=== PATIENT | female | born 1970 | race Caucasian/White ===

== ENCOUNTER 2019-08-23 07:47 | Outpatient (CLI) | payer OTHER, SELFPAY ==
--- NOTE | 2019-08-23 | EST_ITS ---
Patient Info Name: Zoë Penn Age: 49 years : 1970 Gender: Female Ht: 61 in Wt: 211 lbs BSA: 2.08 m2 Exam Date: 08/23/2019 9:54 AM Exam Location: [facility] Stress Patient Status: Outpatient Admit Date: 08/23/2019 Staff Ordering Physician: Richard, Belle Morgan MD Attending Provider: Richard, Belle Morgan MD Exercise Technologist: Taina Fang RDCS Nurse: Julia Barrera, ANP, ACNP-BC Exam Type: CA stress test treadmill w NM Study Info Indications R07.89 - Other chest pain A pharmacological stress test was performed. Summary 1. Please correlate with nuclear medicine images, reported separately. 2. Good exercise capacity for age. 3. No exercise-induced chest pain. 4. Hypotensive blood pressure response to exercise which is abnormal. 5. Upsloping inferolateral ST segment depressions are noted with stress, but these do not meet strict criteria for ischemia. Protocol: [facility] Stress ECG Details Stage: REST Duration (min): 1 min : 36 sec Speed (mph): 0.0 Grade (%): 0 HR (bpm): 77 SBP (mmHg): 153 DBP (mmHg): 89 METS: --- Stage: REST Duration (min): 18 min : 8 sec Speed (mph): 0.0 Grade (%): 0 HR (bpm): 91 SBP (mmHg): 153 DBP (mmHg): 89 METS: --- Stage: STAGE 1 Duration (min): 1 min : 0 sec Speed (mph): 1.7 Grade (%): 10 HR (bpm): 105 SBP (mmHg): 153 DBP (mmHg): 89 METS: --- Stage: STAGE 1 Duration (min): 2 min : 0 sec Speed (mph): 1.7 Grade (%): 10 HR (bpm): 114 SBP (mmHg): 153 DBP (mmHg): 89 METS: --- Stage: STAGE 1 Duration (min): 3 min : 0 sec Speed (mph): 1.7 Grade (%): 10 HR (bpm): 121 SBP (mmHg): 169 DBP (mmHg): 54 METS: --- Stage: STAGE 2 Duration (min): 1 min : 0 sec Speed (mph): 2.5 Grade (%): 12 HR (bpm): 125 SBP (mmHg): 169 DBP (mmHg): 54 METS: --- Stage: STAGE 2 Duration (min): 2 min : 0 sec Speed (mph): 2.5 Grade (%): 12 HR (bpm): 131 SBP (mmHg): 145 DBP (mmHg): 75 METS: --- Stage: STAGE 2 Duration (min): 3 min : 0 sec Speed (mph): 2.5 Grade (%): 12 HR (bpm): 136 SBP (mmHg): 145 DBP (mmHg): 75 METS: --- Stage: STAGE 3 Duration (min): 1 min : 0 sec Speed (mph): 3.4 Grade (%): 14 HR (bpm): 146 SBP (mmHg): 152 DBP (mmHg): 78 METS: --- Stage: STAGE 3 Duration (min): 2 min : 0 sec Speed (mph): 3.4 Grade (%): 14 HR (bpm): 157 SBP (mmHg): 152 DBP (mmHg): 78 METS: --- Stage: STAGE 3 Duration (min): 2 min : 20 sec Speed (mph): 3.4 Grade (%): 14 HR (bpm): 160 SBP (mmHg): 152 DBP (mmHg): 78 METS: --- Stage: RECOVERY Duration (min): 0 min : 39 sec Speed (mph): 1.5 Grade (%): 0 HR (bpm): 153 SBP (mmHg): 157 DBP (mmHg): 100 METS: --- Stage: RECOVERY Duration (min): 1 min : 39 sec Spe
--- NOTE | ~2019-08-23 | NM_ITS ---
EXAMINATION: NM stress w perf spect multi DATE: 08/23/2019 14:47 INDICATION: Chest pain. TECHNIQUE: Rest images were obtained following intravenous administration of 10.2 mCi Tc99m tetrofosm in (Backspaces). The patient performed an exercise activity. At peak exercise, 32.4 mCi Tc99m tetrofosmi n (Myoview) was administered intravenously, and stress images were obtained. Data was reconstructed i nto short axis and horizontal and vertical long axis SPECT images. Gated SPECT images were also obtai victoria. COMPARISON: CT abdomen and pelvis 07/28/2019 FINDINGS: There is a small, mild, fixed perfusion defect involving mid to basal anterior wall, consis tent with infarct. No reversible component to suggest ischemia. There is no segmental wall motion ab normality. Left ventricular ejection fraction measures 69%. IMPRESSION: 1. 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 2. Normal left ventricular ejection fraction measuring 69%. Reviewed, dictated and finalized at location A. GROOVY DEVELOPER IMPRESSION: 1. Small area of mild infarct involving mid to basal anterior wall of left vent ricle. 2. Normal left ventricular ejection fraction measuring 69%.
== END 2019-08-23 07:48 | disposition home or self-care (01) ==
PROVIDERS: PCP Family Medicine; Visit Provider Family Medicine
DX: I95.89 Other hypotension (principal); R94.39 Abnormal result of other cardiovascular function study
CPT/HCPCS: 78452; 93017; A9502

== ENCOUNTER → 2019-10-22 08:29 | Outpatient (CLI) | payer OTHER, SELFPAY ==
--- NOTE | ~2019-10-22 | US_ITS ---
EXAMINATION: US transvaginal EXAM DATE: 10/22/2019 09:25 INDICATION: Bilateral ovarian cysts on previous imaging. TECHNIQUE: Pelvic transvaginal sonogram was performed. There are multiple grayscale and Doppler imag es available for interpretation. Correlation is made to CT 07/28/2019. FINDINGS: Uterus measures 7.7 x 3.8 x 4.4 cm, and is morphologically normal. Endometrial stripe tiffanie sures 8 mm, within normal limits. Again there are multiple sizable nabothian cysts. There is no free pelvic fluid. Right adnexa: The ovary measures 2.6 x 3.3 x 3.1 cm and is morphologically normal. Ovarian vascular f low confirmed. Left adnexa: The ovary measures 2.0 x 1.4 x 1.7 cm and is morphologically normal, with resolution of the left ovarian 5 cm lesion seen on recent CT scan. Ovarian vascular flow confirmed. IMPRESSION: 1. No clinically significant findings. Reviewed, dictated and finalized at location B.
== END ==
PROVIDERS: PCP Family Medicine; Visit Provider Obstetrics & Gynecology Gynecology
DX: N83.209 Unspecified ovarian cyst, unspecified side (principal)
CPT/HCPCS: 76830

== ENCOUNTER → 2020-04-04 09:40 | Outpatient (CLI) | payer OTHER, SELFPAY ==
--- NOTE | ~2020-04-04 | MM_ITS ---
EXAMINATION: MM screening jessie BI w farshad HISTORY: Screening mammogram TECHNIQUE: Craniocaudal and mediolateral oblique 3-D tomosynthesis images were obtained and synthetic 2-D images were generated. CAD analysis was submitted and interpreted. COMPARISON: 03/23/2019, 03/03/2018, 02/25/2017 bilateral digital screening mammogram examinations BREAST PARENCHYMAL COMPOSITION: The breasts are heterogeneously dense, which may obscure small masses . FINDINGS: Stable mild fibroglandular asymmetry. There is no evidence of suspicious mass, calcificatio n, or architectural distortion to suggest malignancy in either breast. There has been no suspicious i nterval change. IMPRESSION: 1. No mammographic evidence of malignancy. 2. Recommend routine screening mammography in one year. BI-RADS Category 2: Benign finding(s). Reviewed, dictated and finalized at location A.
== END ==
PROVIDERS: PCP Family Medicine; Visit Provider Nurse Practitioner
DX: Z12.31 Encounter for screening mammogram for malignant neoplasm of breast (principal)
CPT/HCPCS: 77063; 77067

== ENCOUNTER → 2021-03-24 08:23 | Outpatient (CLI) | payer OTHER, SELFPAY ==
--- NOTE | ~2021-03-24 | US_ITS ---
EXAMINATION: US transvaginal DATE: 03/24/2021 09:02 INDICATION: Bilateral ovarian cysts TECHNIQUE: Multiple endovaginal sonographic images of the pelvis were obtained. COMPARISON: 10/22/2019 FINDINGS: The uterus measures 7.2 x 4.1 x 4.3 cm. A 1.6 x 1.6 x 2.0 cm hypoechoic mass of the posteri or uterus to the right of midline has the appearance of an intramural fibroid. Nabothian cysts are ag ain noted in the cervix. The endometrial complex measures 4 mm. The right ovary measures 1.7 x 2.4 x 2.2 cm. The left ovary measures 2.4 x 3.1 x 1.9 cm. There is normal vascular flow in the ovaries. The re is no free fluid in the pelvis. IMPRESSION: 1. No adnexal cysts identified. Reviewed, dictated and finalized at location B.
== END ==
PROVIDERS: PCP Family Medicine; Visit Provider Obstetrics & Gynecology Gynecology
DX: N83.202 Unspecified ovarian cyst, left side (principal); N83.201 Unspecified ovarian cyst, right side
CPT/HCPCS: 76830

== ENCOUNTER → 2021-04-10 07:27 | Outpatient (CLI) | payer OTHER, SELFPAY ==
--- NOTE | ~2021-04-10 | MM_ITS ---
EXAMINATION: MM screening jessie BI w farshad HISTORY: Screening mammogram TECHNIQUE: Craniocaudal and mediolateral oblique 3-D tomosynthesis images were obtained and synthetic 2-D images were generated. CAD analysis was submitted and interpreted. COMPARISON: 04/04/2020, 03/23/2019, 03/03/2018 bilateral digital screening mammogram examinations BREAST PARENCHYMAL COMPOSITION: There are scattered areas of fibroglandular density. FINDINGS: There is no evidence of suspicious mass, calcification, or architectural distortion to sugg est malignancy in either breast. There has been no suspicious interval change. IMPRESSION: 1. No mammographic evidence of malignancy. 2. Recommend routine screening mammography in one year. BI-RADS Category 1: Negative Reviewed, dictated and finalized at location A.
== END ==
PROVIDERS: PCP Family Medicine; Visit Provider Obstetrics & Gynecology Gynecology
DX: Z12.31 Encounter for screening mammogram for malignant neoplasm of breast (principal)
CPT/HCPCS: 77063; 77067

== ENCOUNTER → 2022-04-16 07:17 | Outpatient (CLI) | payer OTHER, SELFPAY ==
--- NOTE | ~2022-04-16 | MM_ITS ---
EXAMINATION: MM screening jessie BI w farshad HISTORY: Screening mammogram TECHNIQUE: Craniocaudal and mediolateral oblique 3-D tomosynthesis images were obtained and synthetic 2-D images were generated. CAD analysis was submitted and interpreted. COMPARISON: 04/06/2021, 04/04/2020, 03/23/2019, 03/03/2018 bilateral screening mammogram examinations BREAST PARENCHYMAL COMPOSITION: There are scattered areas of fibroglandular density. FINDINGS: Stable mild fibroglandular asymmetry since 03/03/2018. There is no evidence of suspicious ma ss, calcification, or architectural distortion to suggest malignancy in either breast. There has been no suspicious interval change. IMPRESSION: 1. No mammographic evidence of malignancy. 2. Recommend routine screening mammography in one year. BI-RADS Category 1: Negative Reviewed, dictated and finalized at location A.
== END ==
PROVIDERS: PCP Family Medicine; Visit Provider Obstetrics & Gynecology Gynecology
DX: Z12.31 Encounter for screening mammogram for malignant neoplasm of breast (principal)
CPT/HCPCS: 77063; 77067

== ENCOUNTER → 2023-04-22 07:33 | Outpatient (CLI) | payer OTHER, SELFPAY ==
--- NOTE | ~2023-04-22 | MM_ITS ---
EXAMINATION: MM screening jessie BI w farshad HISTORY: Screening mammogram TECHNIQUE: Craniocaudal and mediolateral oblique 3-D tomosynthesis images were obtained and synthetic 2-D images were generated. CAD analysis was submitted and interpreted. COMPARISON: 04/16/2022, 04/06/2021, 04/04/2020 bilateral screening mammogram examinations BREAST PARENCHYMAL COMPOSITION: The breasts are heterogeneously dense, which may obscure small masses . FINDINGS: There is no evidence of suspicious mass, calcification, or architectural distortion to sugg est malignancy in either breast. There has been no suspicious interval change. IMPRESSION: 1. No mammographic evidence of malignancy. 2. Recommend routine screening mammography in one year. BI-RADS Category 1: Negative Reviewed, dictated and finalized at location B.
== END ==
PROVIDERS: PCP Family Medicine; Visit Provider Nurse Practitioner
DX: Z12.31 Encounter for screening mammogram for malignant neoplasm of breast (principal)
CPT/HCPCS: 77063; 77067

== ENCOUNTER 2024-04-27 07:14 | Outpatient (CLI) | payer OTHER, SELFPAY ==
--- NOTE | ~2024-04-27 | MM_ITS ---
EXAMINATION: MM screening jessie BI w farshad HISTORY: Screening TECHNIQUE: Craniocaudal and mediolateral oblique 3-D tomosynthesis images were obtained and synthetic 2-D images were generated. CAD analysis was submitted and interpreted. COMPARISON: Comparison to multiple prior studies sequentially, with oldest reviewed study dated 03/03. BREAST PARENCHYMAL COMPOSITION: Not dense: There are scattered areas of fibroglandular density. FINDINGS: There is no evidence of suspicious mass, calcification, or architectural distortion to sugg est malignancy in either breast. There has been no suspicious interval change. IMPRESSION: 1. No mammographic evidence of malignancy. 2. Recommend routine screening mammography in one year. BI-RADS Category 1: Negative Reviewed, dictated and finalized at location B.
== END 2024-04-27 07:15 | disposition home or self-care (01) ==
LOC: MICIMG 07:16
PROVIDERS: PCP Physician Assistant; Visit Provider Obstetrics & Gynecology Gynecology
DX: Z12.31 Encounter for screening mammogram for malignant neoplasm of breast (principal)
CPT/HCPCS: 77063; 77067

== ENCOUNTER 2024-06-28 07:07 | Outpatient (CLI) | payer OTHER, SELFPAY ==
--- NOTE | ~2024-06-28 | MR_ITS ---
MRI of the thoracic spine Clinical History: Muscle spasm Technique: Axial T2-weighted and gradient images, and sagittal T1-weighted, T2-weighted, and STIR raya ges were acquired. Findings: There is no fracture or subluxation of the thoracic spine. Vertebral bodies maintain normal height and alignment. No bone marrow signal abnormality seen. There is moderate degenerative disc na rrowing throughout the mid thoracic spine, especially from T4 through T9. There are mild disc bulges from T4-T5 through T9-T10, but no uday canal stenosis or cord compression evident. There are moderate facet joint degenerative changes of the lower thoracic spine. Neural for lily are preserved throughout. No abnormal signal seen in the spinal cord. Paravertebral soft tissues are unremarkable. Impression: Moderate degenerative disc changes throughout the mid thoracic spine, as above. No canal stenosis or cord compression. No neural foraminal narrowing. No fracture or subluxation. Reviewed, dictated and finalized at [facility]. [employer]CE LAWYER Impression: Moderate degenerative disc changes throughout the mid thoracic spine, as above. No canal stenosis or cord compression. No neural foraminal narrowing. No fracture or subluxation.
== END 2024-06-28 07:08 | disposition home or self-care (01) ==
LOC: MICIMG 07:07
PROVIDERS: PCP Physician Assistant; Visit Provider Physician Assistant
DX: M51.34 Other intervertebral disc degeneration, thoracic region (principal); M62.830 Muscle spasm of back
CPT/HCPCS: 72146

== ENCOUNTER 2025-05-13 07:27 | Outpatient (CLI) | payer OTHER, SELFPAY ==
--- NOTE | ~2025-05-13 | MM_ITS ---
EXAMINATION: MM screening jessie BI w farshad HISTORY: Screening TECHNIQUE: Craniocaudal and mediolateral oblique 3-D tomosynthesis images were obtained and synthetic 2-D images were generated. CAD analysis was submitted and interpreted. COMPARISON: Comparison to multiple prior studies sequentially, with oldest reviewed study dated 03/23/2019. BREAST PARENCHYMAL COMPOSITION: There are scattered areas of fibroglandular density. FINDINGS: There is no evidence of suspicious mass, calcification, or architectural distortion to suggest malignancy in either breast. There has been no suspicious interval change. IMPRESSION: 1. No mammographic evidence of malignancy. 2. Recommend routine screening mammography in one year. BI-RADS Category 1: Negative Reviewed, dictated and finalized at location B.
== END 2025-05-13 07:28 | disposition home or self-care (01) ==
LOC: MICIMG 07:28
PROVIDERS: PCP Nurse Practitioner; Visit Provider Nurse Practitioner
DX: Z12.31 Encounter for screening mammogram for malignant neoplasm of breast (principal)
CPT/HCPCS: 77063; 77067

== ENCOUNTER 2025-05-27 09:22 | Outpatient (CLI) | payer OTHER, SELFPAY ==
--- NOTE | ~2025-05-27 | US_ITS ---
EXAMINATION: US pelvic complete, 05/27/2025 9:23 TRIMMING DEPARTMENT BLOCKER HISTORY: Post menopausal bleeding Comparison: None Technique: Begum-scale and color Doppler images were obtained. Findings: Uterus: Uterus anteverted 7 x 3.6 x 4.1 cm. Posterior uterine body fibroid 1.8 x 2.4 cm. . Endometrium 4 mm. Right Ovary:Right ovary not identified due to bowel gas. Left Ovary: Left ovary 2.8 x 1.6 x 1.8 cm, no adnexal mass, normal flow. Free Fluid: None Impression: Uterine fibroid detailed above Reviewed, dictated and finalized at location P. MING DEPARTMENT BLOCKER Impression: Uterine fibroid detailed above
== END 2025-05-27 09:23 | disposition home or self-care (01) ==
LOC: MICIMG 09:22
PROVIDERS: PCP Nurse Practitioner; Visit Provider Nurse Practitioner
DX: D25.9 Leiomyoma of uterus, unspecified (principal); N95.0 Postmenopausal bleeding
CPT/HCPCS: 76856

== ENCOUNTER 2025-06-26 16:52 | Outpatient (CLI) | payer OTHER, SELFPAY ==
[2025-06-26 17:49] LABS: Anion Gap 8 mmol/L (4-12); Blood Urea Nitrogen 14 mg/dL (7-17); Calcium 9.8 mg/dL (8.4-10.2); Carbon Dioxide 27 mmol/L (22-30); Chloride 101 mmol/L (98-107); Estimated Glomerular Filt Rate 59; Glucose 96 mg/dL (65-110); Potassium 3.7 mmol/L (3.4-5.0); Sodium 136 mmol/L (137-145)
--- OUTSIDE RECORDS SUMMARY | 2025-06-26 21:04 | XMS_ITS | Clinical Summary ---
Author Organization [facility] Address [address] [place] [address] Care Team Providers Care Cath Laboratory Technician Name Role Phone Peyman BowieElizabetCherry henning Primary Care Provider [phone] Source Comments [facility],non-owned Affiliates and Associated Physician Practices is amultiple site organization consisting of ambulatory clinics and hospital sitesin [place], [place], [place] and [place]. This disclosure is being madepursuant to the Care Everywhere program and may not contain all information available regarding this patient. Last updated 18.[facility] Allergies No known active allergies Medications * Be aware that medications may not be up to date on this document. Alwaysverify current medications with the patient. lisinopril-hydro CHLOROthiazide (PRINZIDE; ZESTORETIC) 20-12.5 MG tablet Take 1 tablet by mouth once daily Active cyanocobalamin (VITAMIN B-12) 1000 MCG tablet Take 1,000 mcg by mouth once daily 06/20/2019 Active Magnesium Oxide 400 (240 Mg) MG Take 1 tablet by mouth once daily 06/20/2019 Active Naproxen Sodium 220 MG Take 220 mg by mouth once daily as needed Active raNITIdine (ZANTAC) 150 MG tablet Take 150 mg by mouth once daily as needed 5 10/11/2018 Active Active Problems Problem Noted Date Diagnosed Date Diverticulitis 07/03/2019 NAFLD (nonalcoholic fatty liver disease) 019 Overview (08/28/2019): 08/28/19 Fibroscan CAP 343, LSM 4.8 kPa Essential hypertension 07/03/2019 Social History Tobacco Use Types Packs/Day Years Used Date Smoking Tobacco: Never Smokeless Tobacco: Never Alcohol Use Standard Drinks/Week Comments Never 0 (1 standard drink = 0.6 oz pur e alcohol) AUDIT-C Answer Date Recorded Frequency of Alcohol Consumption Never 07/03/2019 Average Number of Drinks Not on file 019 Frequency of Binge Drinking Not on file 06/17 Comments Unknown Sex and Gender Information Value Date Recorded Sex Assigned at Not on file 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 Gender Identity Not on file Sexual Orientation Not on file Last Filed Vital Signs Vital Sign Reading Time Taken Comments Blood Pressure 136/90 08/28/2019 2:04 PM [facility] Pulse 102 08/28/2019 2:04 PM [facility] Temperature 36.7 C (98.1 F) 08/28/2019 2:04 PM [facility] Respiratory Rate 20 08/28/2019 2:04 PM [facility] Oxygen Saturation 97% 08/28/2019 2:04 PM [facility] Inhaled Oxygen Concentration - - Weight 96.3 kg (212 lb 6.4 oz) 08/28/2019 2:04 P M [facility] Height 154.9 cm (5' 1) 08/28/2019 2:04 PM [facility] Body Mass Index 40.13 08/28/2019 2:04 PM [facility] Plan of Treatment Health Maintenance Due Date Last Done Comments COLOGUARD (AGES 45-75) - COL ON CA SCREENING 1970 COLON MONITORING 1970 COLONOSCOPY - COLON CA SCREENING 1971 CT COLONOGRAPHY - COLON CA SCREENING 1970 Colorectal Cancer Screening 1970 FIT - COLON CA SCREENING 1970 FLEX SIG - COLON CA SCREENING 1970 LIPID TESTING 1970 MAMMOGRAM 1970 HIV SCREENING 1986 HEPATITIS C SCREENING 08/12/1989 DTAP/TDAP/TD VACCINES (1 - Tdap) 1990 HEPATITIS B VACCINE (1 of 3 - 19+ 3-dose series) 1990 PNEUMOCOCCAL VACCINE 50+ (1 of 1 - PCV) 2021 ZOSTER VACCINE (1 of 2) 2021 SCREENING FOR DIABETES 07/03/2022 07/03/2019 DEPRESSION SCREENING 07/18/2024 COVID-19 VACCINE (1 - 2025-2 6 season) 2025 INFLUENZA VACCINE (#1) 2025 HIB VACCINE Aged Out No longer eligi ble based on patient's age to complete this topic HPV VACCINE Aged Out No longer eligi ble based on patient's age to complete this topic MENINGOCOCCAL (Group B) VACC INE SHARED DECISION-MAKING Aged Out No longer eligibl e based on patient's age to complete this topic MENINGOCOCCAL GROUPS A/C/Y/W VACCINE Aged Out No longer eligible b ased on patient's age to complete this topic Procedures Procedure Name Priority Date/Time Associated Diagnosis Comments COMPREHENSIVE METABOLIC PANEL Routine 07/03/2019 4:06 PM [facility] NAFLD (nonalcoholic fatty liver disease) from Last 3 Months or Most Recently Relevant to Health Maintenance Results * COMPREHENSIVE METABOLIC PANEL (07/03/2019 4:06 PM [facility]) BUN 9 7 - 26 mg/dL 07/03/2019 5:03 PM [facility] Creatinine 0.7 0.6 - 1.2 mg/dL 07/03/2019 5:03 PM [facility] Sodium 139 136 - 145 mmol/L 07/03/2019 5:03 PM [facility] Potassium 4.1 3.5 - 4.5 mmol/L 07/03/2019 5:03 PM [facility] Chloride 104 98 - 107 mmol/L 07/03/2019 5:03 PM [facility] CO2 24 22 - 29 mmol/L 07/03/2019 5:03 PM [facility] Glucose 86 70 - 115 mg/dL 07/03/2019 5:03 PM [facility] Calcium 9.5 8.4 - 10.2 mg/dL 07/03/2019 5:03 PM [facility] Protein Total 7.0 6.0 - 8.3 g/dL 07/03/2019 5:03 PM [facility] Albumin 4.0 3.4 - 5.0 g/dL 07/03/2019 5:03 PM [facility] Bilirubin Total 0.4 0.2 - 1.2 mg/dL 07/03/2019 5:03 PM [facility] Alkaline Phosphatase 58 40 - 150 Units/L 07/03/2019 5:03 PM [facility] ALT 19 0 - 55 Units/L 07/03/2019 5:03 PM [facility] AST 19 5 - 34 Units/L 07/03/2019 5:03 PM [facility] Anion Gap 15 8 - 18 07/03/2019 5:03 PM [facility] BUN/Creatinine Ratio 13 7 - 23 07/03/2019 5:03 PM [facility] Osmolality Calculated 286 270 - 300 mOsm/kg 07/03/2019 5:03 PM [facility] Albumin/Globulin Ratio 1.3 1.1 - 2.3 07/03/2019 5:03 PM [facility] eGFR >60 >60 mL/min/1.7 3 m2 07/03/2019 5:03 PM [facility] Blood BLOOD SPECIMEN / Unknown Lab Venipuncture / Unknown 07/03/2019 4:06 PM [facility] 07/03/2019 4:19 PM [facility] Dannie Roseann Pinto MD LAB - CHEMISTRY ORDERA BLES Final Result [facility] [address] [phone] from Last 3 Months or Most Recently Relevant to Health Maintenance Insurance [employer] Care Teams Cath Laboratory Technician Relationship Specialty Start Date End Date Cherry Fernandez DO [address] [place] [id number] PCP - General 07/16/19
--- OUTSIDE RECORDS SUMMARY | 2025-06-26 21:04 | XMS_ITS | Encounter Summary ---
Author Organization [facility] Address [address] [place] [address] [place] [address] Care Team Providers Care Senior Supplier Quality Engineer Name Role Phone Belle Ramos MD Primary Care Provider [phone] Cherry Fernandez DO Primary Care Provider [phone] Reason for Visit * Reason Onset Date Comments Appointment 06/08/2019 Encounter Details Date Type Department Care Team (Late st Contact Info) Description 06/08/2019 Telephone [facility] [address] [place] [address] Kaitlyn Mcnair Appointment Social History Tobacco Use Types Packs/Day Years Used Date Smoking Tobacco: Never Assessed Comments Unknown Sex and Gender Information Value Date Recorded Sex Assigned at Not on file 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 Pinto. No answer vm was left. TRONICS WORKER documented in this encounter Plan of Treatment Not on file documented as of this encounter Visit Diagnoses Not on filedocumented in this encounter Care Teams Senior Supplier Quality Engineer Relationship Specialty Start Date End Date Belle Ramos MD [address] [place] [address] [address] [place] [id number] PCP - General Family Medicine 07/03/19 07/15/19 Cherry Fernandez DO [address] [place] [id number] PCP - General 07/16/19 documented as of this encounter
--- OUTSIDE RECORDS SUMMARY | 2025-06-26 21:04 | XMS_ITS | Data Portability ---
Author Organization [facility] Address [address] [place] [address] Care Team Providers Care Propellant Assembler Name Role Phone GINA VELASCOAR Primary Care Provider Assessment Encounter Date Assessment Date Assessment LastModified by Organization Details LastModified Time 11/28/2018 11/28/2018 notalgia paresthetica, back rec sarna lotion prn itching resolved dermatitis nose reassurance rec call/rtc if recurs benign nevi-not suspicious fbse in 1 yr sunscreen handout reviewed and given discussed increased risk of skin cancer including melanoma with tanning salon use rec stop all tanning beds and outdoor tanning. [email or web address] Not available 11/28/2018 11:53:21 Plan of Treatment Reminders Order Date Submit Date Provider Last Modified By Organization Details Last Modified Time Details Appointments None record ed. Lab None record ed. Referral None record ed. Procedures None record ed. Surgeries None record ed. Imaging None record ed. Medication Orders None record ed. Patient TargetsNo targets recorded. Patient InstructionsNo instructions recorded. Reason for Referral None Reported. Medical Equipment None Reported. Allergies No known drug allergies Medications Name Sig Start Date Stop Date Status Note LastModified by Organization Details LastModified Time Vitamin D2 1,250 mcg (50,000 unit) capsule Take 1 capsule every week by oral route. active Not Available Not Available No t Available naproxen 500 mg tablet Take 1 tablet twice a day by oral route. active Not Available Not Available No t Available magnesium active Not Available Not Rama ilable Not Available cetirizine active Not Available Not Av ailable Not Available B12 active Not Available Not Availa ble Not Available Vitals None Recorded Social History Question Answer Notes LastModified by Organizat ion Details LastModified Time Tobacco Smoking Status Former Smoker Marcin oquendo OR - Beatriz Mccoy MD 11/28/2018 11:24:23 What Was The Date Of Your Most Recent Tobacco Screening? 11/28/2018 Information not available 02/08/2019 Sun Exposure Moderate [email or web address] Information not available 11/28/2018 Do You Use Sunscreen Routinely? No [email or web address] Information not available 11/28/2018 Tanning Bed Exposure Yes [email or web address] Information not available 11/28/2018 How Many Years Have You Smoked Tobacco? 2 [email or web address] Information not available 11/28/2018 Sex: Unknown Functional Status Question Answer Note LastModified by Organizat ion Details LastModified Time What is your level of alcohol consumption? Occasional [email or web address] Information not available 11/28/2018 Mental Status None recorded. Family History Relationship Description Onset Age of this Age Resolved Age Notes LastModified by Organization Details LastModified Time Mother Non-Hodgkin' s lymphoma (clinical) [email or web address] Not available 11:22:47 Mother Malignant neoplasm of bone [email or web address] Not available 11/15 11:22:56 Sister Malignant neoplasm of thyroid gland [email or web address] Not available 11/15 11:23:13 Maternal Grandmother Malignant neoplasm of uterus [email or web address] Not available 11/15 11:23:30 Maternal Grandmother Diabetes mellitus [email or web address] Not available 11/15 11:23:56 Maternal Uncle Malignant melanoma [email or web address] Not available 11/15 11:23:47 Medical History Condition Response Diabetes N Bleeding Disorder N Arthritis N Hyperthyroidism N Defibrillator N Cancer N Stroke N Asthma N Hypothyroidism N Lupus N HIV/AIDS N Pacemaker N Psoriasis N Anemia N Hepatitis N Heart Disease N Hypertension N Gynecological HistoryNo gynecological history recorded. Obstetrics History GPAL:G 0 P 0 0 0 0 Past Encounters Encounter ID Performer Location Encounter Start Date Encounter Closed Date Diagnosis/Indication Diagnosis SNOMED-CT Code Diagnosis ICD10 Code Diagnosis IMO Codes Diagnosis Note [id number] Beatriz Mccoy MD Main Office [address] [address] 11/28/2018 11:15:18 11/28/2018 12:07:50 Notalgia paresthetica 872373972 G54.8 Melanocyti c nevus of trunk 250217332 D22.5 Melanocyti c nevus of skin of thigh 174492383 D22.71 Melanocyti c nevus of face 548712628 D22.30 Health Concerns Section Related Observation LastModified by Organization Detai ls LastModified Time None Recorded Concern Status LastModified by Organization Details LastModified Time None Recorded Advance Directives Directive None Recorded Payers Insurance Date Sequence Insurance Name Policy Number Policy Finney Covered Member ID Finney Member ID Guarantor Name 11/28/2018 1 [employer] - DOS PRIOR TO 21 - [facility] [employer] Zoë Mcraeick [id number] Xant[employer] F[employer] Notes Date Note Type Note Provider Name and Address Organization Details Recorded Time 11/28/2018 text/html ROS as noted in the HPI full body check a couple of spots on back are itchyunder the shoulder bladesno raised areas, just occ itchy there dry spot on R nosex 1 monthseems to be getting betterusing daily moisturizerbetter today mole removed in 1999 on the R upper backshe thinks it was ok but is not able to get the records as the physician retired no other bleeding spots, changing moles, or sores that don't want to heal.tanning salon use 4x/month for the past year.Patient's completed past medical history form was reviewed.no f/c Beatriz Mccoy MD [address] [facility], [address], [place], [address], [facility] [place] Beatriz Mccoy MD 12/02/2018 10:43:03 OBGyn Episode No OBEpisode recorded.
--- OUTSIDE RECORDS SUMMARY | 2025-06-26 21:04 | XMS_ITS | Data Portability ---
Author Organization [place] - [facility] [employer], Main Office Address [address] [place] [address] Assessment No assessment recorded. Plan of Treatment Reminders Order Date Submit Date Provider Last Modified By Organization Details Last Modified Time Details Appointments None recorded. Lab vitamin D, 25-hydroxy, total, serum 2023 024 [email or web address] [facility], [address] [place] [address], [address], 4 09:28:24 lipid panel, serum 2023 024 [email or web address] 2 [facility], [address] [place] [address], [address], 4 09:28:24 CMP, serum or plasma 2023 024 [email or web address] [facility], [address] [place] [address], [address], 4 09:28:24 CK (creatine kinase), total, serum 2023 024 [email or web address] 2 [facility], [address] [place] [address], [address], 4 09:28:24 TSH + free T4, serum 2023 024 [email or web address] [facility], [address] [place] [address], [address], 4 09:28:24 CBC w/ auto diff 2023 024 [email or web address] [facility], [address] [facility] [address], [place], [address], 4 09:28:25 vitamin B12 + folate, serum or blood 2023 024 [email or web address] 2 [facility], [address] [facility] [address], [place], [address], 4 09:28:24 lipid panel, serum 2022 023 [email or web address] [facility], [address] [facility] [address], [place], [address], 3 08:23:11 CMP, serum or plasma 2022 023 [email or web address] [facility], [address] [facility] [address], [place], [address], 3 08:23:10 Referral gastroenter ologist referral - Please call patient to schedule an appointment . Thank you. 2023 024 [email or web address] Gerardo Vincent MD, [address], [address], [place], [address], 4 09:05:22 Procedures None recorded. Surgeries None recorded. Imaging MRI, thoracic spine, w/o contrast - this is no better . been going on since February , no better; has tried muscle relaxer and had xray on 05/31/24 *Please call pt to schedule* [address] [facility], [address], [facility] [address], [place], [address], 4 12:50:43 Medication Orders prednisone 20 mg tablet 2023 024 [facility] [address], [place], [address], 4 14:40:51 cyclobenzap rine 10 mg tablet 2023 024 [email or web address] 200 [facility] [address], [address], [place], [address], 4 09:48:54 cyanocobala min (vit B-12) 1,000 mcg sublingual tablet 2023 024 [email or web address] [facility] [address], [place], [address], 4 09:30:39 Patient TargetsNo targets recorded. Patient Instructions Encounter Date Encounter Id Patient Instructions Last Modified By Organization Details Last Modified Time 06/07/2024 [id number] Advised ibuprofe n and heat [email or web address] Not available 06/07/2024 14:45:04 Reason for Referral Rehab Care Assistant Referral for Screening for malignant neoplasm of colon Please call patient to schedule an appointment. Thank you. Referring Physician: Sukhwinder Cardoza, Family Medicine, Encounter Date: 01/09/2024 Results Created Date Observation Date Name Description Value Unit Range Abnormal Flag Note LastModifiedBy Organization Detail LastModifiedTime 02/15/2002/15/2023 COMP. METAB OLIC PANEL (14) glucose 93 mg/dL 70-99 Not Available [facility] ([facility]) [address] [place], [address], 02/15/2023 03:07:41 02/15/2002/15/2023 COMP. METAB OLIC PANEL (14) BUN 13 mg/dL 6-24 Not Available [facility] ([facility]) [address] [place], [address], 02/15/2023 03:07:41 02/15/20 23 02/15/2023 COMP. METAB OLIC PANEL (14) creatinine 0.84 mg/dL 0.57-1 .00 Not Available [facility] ([facility]) [address] [place], [address], 02/15/2023 03:07:41 02/15/20 23 02/15/2023 COMP. METAB OLIC PANEL (14) eGFR 84 mL/mi n/1.7 3 >59 Not Available [facility] ([facility]) [address] [facility], [place], [address], 02/15/2023 03:07:41 02/15/20 23 02/15/2023 COMP. METAB OLIC PANEL (14) BUN/creatini ne ratio 15 9-23 Not Available [facility]) [address] [facility], [place], [address], 02/15/2023 03:07:41 02/15/20 23 02/15/2023 COMP. METAB OLIC PANEL (14) sodium 140 mmol/ L 134-14 4 Not Available [facility] ([facility]) [address] [facility], [place], [address], 02/15/2023 03:07:41 02/15/20 23 02/15/2023 COMP. METAB OLIC PANEL (14) potassium 4.4 mmol/ L 3.5-5. 2 Not Available [facility] ([facility]) [address] [facility], [place], [address], 02/15/2023 03:07:41 02/15/20 23 02/15/2023 COMP. METAB OLIC PANEL (14) chloride 103 mmol/ L 96-106 Not Available [facility] ([facility]) [address] [facility], [place], [address], 02/15/2023 03:07:41 02/15/20 23 02/15/2023 COMP. METAB OLIC PANEL (14) carbon dioxide, total 25 mmol/ L 20-29 Not Available [facility] ([facility]) [address] [facility], [place], [address], 02/15/2023 03:07:41 02/15/20 23 02/15/2023 COMP. METAB OLIC PANEL (14) calcium 9.3 mg/dL 8.7-10 .2 Not Available [facility] ([facility]) [address] [place], [address], 02/15/2023 03:07:41 02/15/20 23 02/15/2023 COMP. METAB OLIC PANEL (14) protein, total 6.3 g/dL 6.0-8. 5 Not Available [facility] ([facility]) [address] [place], [address], 02/15/2023 03:07:41 02/15/20 23 02/15/2023 COMP. METAB OLIC PANEL (14) albumin 4.3 g/dL 3.8-4. 9 Not Available [facility] ([facility]) [address] [place], [address], 02/15/2023 03:07:41 02/15/20 23 02/15/2023 COMP. METAB OLIC PANEL (14) globulin, total 2.0 g/dL 1.5-4. 5 Not Available [facility] ([facility]) [address] [place], [address], 02/15/2023 03:07:41 02/15/20 23 02/15/2023 COMP. METAB OLIC PANEL (14) A/G ratio 2.2 1.2-2. 2 Not Available [facility] ([facility]) [address] [facility] [place], [address], 02/15/2023 03:07:41 02/15/20 23 02/15/2023 COMP. METAB OLIC PANEL (14) bilirubin, total 0.5 mg/dL 0.0-1. 2 Not Available [facility] ([facility]) [address] [facility] [place], [address], 02/15/2023 03:07:41 02/15/20 23 02/15/2023 COMP. METAB OLIC PANEL (14) alkaline phosphatase 52 IU/L 44-121 Not Available [facility]) [address] [place], [address], 02/15/2023 03:07:41 02/15/20 23 02/15/2023 COMP. METAB OLIC PANEL (14) AST (SGOT) 17 IU/L 0-40 Not Available [facility] ([facility]) [address] [place], [address], 02/15/2023 03:07:41 02/15/20 23 02/15/2023 COMP. METAB OLIC PANEL (14) ALT (SGPT) 19 IU/L 0-32 Not Available [facility] ([facility]) [address] [place], [address], 02/15/2023 03:07:41 02/15/20 23 02/15/2023 LIPID PANEL cholesterol, total 173 mg/dL 100-19 9 Not Available [facility] ([facility]) [address] [place], [address], 02/15/2023 03:07:43 02/15/20 23 02/15/2023 LIPID PANEL triglyceride s 117 mg/dL 0-149 Not Available [facility] ([facility]) [address] [place], [address], 02/15/2023 03:07:43 02/15/20 23 02/15/2023 LIPID PANEL HDL cholesterol 46 mg/dL >39 Not Available [facility]) [address] [place], [address], 02/15/2023 03:07:43 02/15/20 23 02/15/2023 LIPID PANEL VLDL cholesterol donnell 21 mg/dL 5-40 Not Available [facility] ([facility]) [address] [place], [address], 02/15/2023 03:07:43 02/15/20 23 02/15/2023 LIPID PANEL LDL chol calc (nih) 106 mg/dL 0-99 above high normal Not Available [facility] ([facility]) [address] [facility], [place], [address], 02/15/2023 03:07:43 02/15/20 23 02/15/2023 LIPID PANEL comment: TERRITORY ACCOUNT REPRESENTATIVE Not Available [facility] ([facility]) [address] [facility], [place], [address], 02/15/2023 03:07:43 06/23/20 23 06/23/2023 VITAM IN D 25-HY DROXY [id number] 34.9 NG/mL 30-100 Vitam in D Statu s: Defic ient: <20 ng/mL Insuf ficie nt: 20-29 ng/mL Suffi cient : 30-10 0 ng/mL Not Available [facility] (Lab) [address] [place], [address], 06/23/2023 22:11:17 01/20/20 24 01/21/2024 TSH+F REE T4 TSH 0.842 uIU/m L 0.450- 4.500 Not Available [facility] ([facility]) [address] [facility], [place], [address], 01/21/2024 10:36:09 01/20/20 24 01/21/2024 TSH+F REE T4 T4,free(dire ct) 1.37 NG/dL 0.82-1 .77 Not Available [facility] ([facility]) [address] [facility], [place], [address], 01/21/2024 10:36:09 01/20/20 24 01/21/2024 CBC WITH DIFFE RENTI AL/PL ATELE T WBC 5.1 x10e3 /uL 3.4-10 .8 Not Available [facility] ([facility]) [address] [facility], [place], [address], 01/21/2024 10:36:09 01/20/20 24 01/21/2024 CBC WITH DIFFE RENTI AL/PL ATELE T RBC 4.54 x10e6 /uL 3.77-5 .28 Not Available [facility] ([facility]) [address] [place], [address], 01/21/2024 10:36:09 01/20/20 24 01/21/2024 CBC WITH DIFFE RENTI AL/PL ATELE T hemoglobin 13.5 g/dL 11.1-1 5.9 Not Available [facility] ([facility]) [address] [place], [address], 01/21/2024 10:36:09 01/20/20 24 01/21/2024 CBC WITH DIFFE RENTI AL/PL ATELE T hematocrit 39.9 % 34.0-4 6.6 Not Available [facility] ([facility]) [address] [place], [address], 01/21/2024 10:36:09 01/20/20 24 01/21/2024 CBC WITH DIFFE RENTI AL/PL ATELE T MCV 88 fL 79-97 Not Available [facility] ([facility]) [address] [place], [address], 01/21/2024 10:36:09 01/20/20 24 01/21/2024 CBC WITH DIFFE RENTI AL/PL ATELE T MCH 29.7 pg 26.6-3 3.0 Not Available [facility] ([facility]) [address] [place], [address], 01/21/2024 10:36:09 01/20/20 24 01/21/2024 CBC WITH DIFFE RENTI AL/PL ATELE T MCHC 33.8 g/dL 31.5-3 5.7 Not Available [facility] ([facility]) [address] [place], [address], 01/21/2024 10:36:09 01/20/20 24 01/21/2024 CBC WITH DIFFE RENTI AL/PL ATELE T RDW 13.7 % 11.7-1 5.4 Not Available [facility] ([facility]) [address] [facility], [place], [address], 01/21/2024 10:36:09 01/20/20 24 01/21/2024 CBC WITH DIFFE RENTI AL/PL ATELE T platelets 259 x10e3 /uL 150-45 0 Not Available [facility] ([facility]) [address] [facility], [place], [address], 01/21/2024 10:36:09 01/20/20 24 01/21/2024 CBC WITH DIFFE RENTI AL/PL ATELE T neutrophils 42 % not estab. Not Available [facility] ([facility]) [address] [facility], [place], [address], 01/21/2024 10:36:09 01/20/20 24 01/21/2024 CBC WITH DIFFE RENTI AL/PL ATELE T lymphs 48 % not estab. Not Available [facility] ([facility]) [address] [facility], [place], [address], 01/21/2024 10:36:09 01/20/20 24 01/21/2024 CBC WITH DIFFE RENTI AL/PL ATELE T monocytes 7 % not estab. Not Available [facility] ([facility]) [address] [facility], [place], [address], 01/21/2024 10:36:09 01/20/20 24 01/21/2024 CBC WITH DIFFE RENTI AL/PL ATELE T eos 2 % not estab. Not Available [facility] ([facility]) [address] [place], [address], 01/21/2024 10:36:09 01/20/20 24 01/21/2024 CBC WITH DIFFE RENTI AL/PL ATELE T basos 1 % not estab. Not Available [facility] ([facility]) [address] [place], [address], 01/21/2024 10:36:09 01/20/20 24 01/21/2024 CBC WITH DIFFE RENTI AL/PL ATELE T immature cells TERRITORY ACCOUNT REPRESENTATIVE Not Available [facility]) [address] [facility], [place], [address], 01/21/2024 10:36:09 01/20/20 24 01/21/2024 CBC WITH DIFFE RENTI AL/PL ATELE T neutrophils (absolute) 2.1 x10e3 /uL 1.4-7. 0 Not Available [facility] ([facility]) [address] [facility], [place], [address], 01/21/2024 10:36:09 01/20/20 24 01/21/2024 CBC WITH DIFFE RENTI AL/PL ATELE T lymphs (absolute) 2.4 x10e3 /uL 0.7-3. 1 Not Available [facility] ([facility]) [address] [facility], [place], [address], 01/21/2024 10:36:09 01/20/20 24 01/21/2024 CBC WITH DIFFE RENTI AL/PL ATELE T monocytes(ab solute) 0.4 x10e3 /uL 0.1-0. 9 Not Available [facility] ([facility]) [address] [place], [address], 01/21/2024 10:36:09 01/20/20 24 01/21/2024 CBC WITH DIFFE RENTI AL/PL ATELE T eos (absolute) 0.1 x10e3 /uL 0.0-0. 4 Not Available [facility] ([facility]) [address] [place], [address], 01/21/2024 10:36:09 01/20/20 24 01/21/2024 CBC WITH DIFFE RENTI AL/PL ATELE T baso (absolute) 0.0 x10e3 /uL 0.0-0. 2 Not Available [facility] ([facility]) [address] [facility], [place], [address], 01/21/2024 10:36:09 01/20/20 24 01/21/2024 CBC WITH DIFFE RENTI AL/PL ATELE T immature granulocytes 0 % not estab. Not Available [facility] ([facility]) [address] [facility], [place], [address], 01/21/2024 10:36:09 01/20/20 24 01/21/2024 CBC WITH DIFFE RENTI AL/PL ATELE T immature grans (abs) 0.0 x10e3 /uL 0.0-0. 1 Not Available [facility] ([facility]) [address] [facility], [place], [address], 01/21/2024 10:36:09 01/20/20 24 01/21/2024 CBC WITH DIFFE RENTI AL/PL ATELE T NRBC TERRITORY ACCOUNT REPRESENTATIVE Not Available [facility] ([facility]) [address] [facility], [place], [address], 01/21/2024 10:36:09 01/20/20 24 01/21/2024 CBC WITH DIFFE RENTI AL/PL ATELE T hematology comments: TERRITORY ACCOUNT REPRESENTATIVE Not Available [facility] ([facility]) [address] [facility], [place], [address], 01/21/2024 10:36:09 01/20/20 24 01/21/2024 COMP. METAB OLIC PANEL (14) glucose 87 mg/dL 70-99 Not Available [facility] ([facility]) [address] [facility], [place], [address], 01/21/2024 10:36:10 01/20/20 24 01/21/2024 COMP. METAB OLIC PANEL (14) BUN 12 mg/dL 6-24 Not Available [facility] ([facility]) [address] [place], [address], 01/21/2024 10:36:10 01/20/20 24 01/21/2024 COMP. METAB OLIC PANEL (14) creatinine 0.76 mg/dL 0.57-1 .00 Not Available [facility] ([facility]) [address] [facility], [place], [address], 01/21/2024 10:36:10 01/20/20 24 01/21/2024 COMP. METAB OLIC PANEL (14) eGFR 94 mL/mi n/1.7 3 >59 Not Available [facility] ([facility]) [address] [facility], [place], [address], 01/21/2024 10:36:10 01/20/20 24 01/21/2024 COMP. METAB OLIC PANEL (14) BUN/creatini ne ratio 16 9-23 Not Available [facility] ([facility]) [address] [facility], [place], [address], 01/21/2024 10:36:10 01/20/20 24 01/21/2024 COMP. METAB OLIC PANEL (14) sodium 141 mmol/ L 134-14 4 Not Available [facility] ([facility]) [address] [facility], [place], [address], 01/21/2024 10:36:10 01/20/20 24 01/21/2024 COMP. METAB OLIC PANEL (14) potassium 4.2 mmol/ L 3.5-5. 2 Not Available [facility] ([facility]) [address] [facility], [place], [address], 01/21/2024 10:36:10 01/20/20 24 01/21/2024 COMP. METAB OLIC PANEL (14) chloride 103 mmol/ L 96-106 Not Available [facility] ([facility]) [address] [facility], [place], [address], 01/21/2024 10:36:10 01/20/20 24 01/21/2024 COMP. METAB OLIC PANEL (14) carbon dioxide, total 25 mmol/ L 20-29 Not Available [facility] ([facility]) [address] [facility], [place], [address], 01/21/2024 10:36:10 01/20/20 24 01/21/2024 COMP. METAB OLIC PANEL (14) calcium 9.7 mg/dL 8.7-10 .2 Not Available [facility] ([facility]) [address] [facility], [place], [address], 01/21/2024 10:36:10 01/20/20 24 01/21/2024 COMP. METAB OLIC PANEL (14) protein, total 6.8 g/dL 6.0-8. 5 Not Available [facility] ([facility]) [address] [facility], [place], [address], 01/21/2024 10:36:10 01/20/20 24 01/21/2024 COMP. METAB OLIC PANEL (14) albumin 4.8 g/dL 3.8-4. 9 Not Available [facility] ([facility]) [address] [facility], [place], [address], 01/21/2024 10:36:10 01/20/20 24 01/21/2024 COMP. METAB OLIC PANEL (14) globulin, total 2.0 g/dL 1.5-4. 5 Not Available [facility] ([facility]) [address] [place], [address], 01/21/2024 10:36:10 01/20/20 24 01/21/2024 COMP. METAB OLIC PANEL (14) bilirubin, total 0.4 mg/dL 0.0-1. 2 Not Available [facility] ([facility]) [address] [facility], [place], [address], 01/21/2024 10:36:10 01/20/20 24 01/21/2024 COMP. METAB OLIC PANEL (14) alkaline phosphatase 59 IU/L 44-121 Not Available [facility]) [address] [facility] [place], [address], 01/21/2024 10:36:10 01/20/20 24 01/21/2024 COMP. METAB OLIC PANEL (14) AST (SGOT) 19 IU/L 0-40 Not Available [facility] ([facility]) [address] [place], [address], 01/21/2024 10:36:10 01/20/20 24 01/21/2024 COMP. METAB OLIC PANEL (14) ALT (SGPT) 32 IU/L 0-32 Not Available [facility] ([facility]) [address] [place], [address], 01/21/2024 10:36:10 01/20/20 24 01/21/2024 LIPID PANEL cholesterol, total 185 mg/dL 100-19 9 Not Available [facility] ([facility]) [address] [place], [address], 01/21/2024 10:36:10 01/20/20 24 01/21/2024 LIPID PANEL triglyceride s 151 mg/dL 0-149 above high normal Not Available [facility] ([facility]) [address] [place], [address], 01/21/2024 10:36:10 01/20/20 24 01/21/2024 LIPID PANEL HDL cholesterol 43 mg/dL >39 Not Available [facility]) [address] [place], [address], 01/21/2024 10:36:10 01/20/20 24 01/21/2024 LIPID PANEL VLDL cholesterol donnell 27 mg/dL 5-40 Not Available [facility] ([facility]) [address] [place], [address], 01/21/2024 10:36:10 01/20/20 24 01/21/2024 LIPID PANEL LDL chol calc ([facility]) 115 mg/dL 0-99 above high normal Not Available [facility] ([facility]) [address] [place], [address], 01/21/2024 10:36:10 01/20/20 24 01/21/2024 LIPID PANEL LDL calc comment: TERRITORY ACCOUNT REPRESENTATIVE Not Available [facility]) [address] [facility], [place], [address], 01/21/2024 10:36:10 01/20/20 24 01/21/2024 VITAM IN B12 AND FOLAT E vitamin B12 >2000 pg/mL 232-12 45 above high normal Not Available [facility] ([facility]) [address] [facility], [place], [address], 01/21/2024 10:36:10 01/20/20 24 01/21/2024 VITAM IN B12 AND FOLAT E folate (folic acid), serum 6.6 NG/mL >3.0 A serum folat e debbie ntrat ion of less than 3.1 ng/mL is consi dered to repre sent clini donnell defic iency . Not Available [facility] ([facility]) [address] [facility], [place], [address], 01/21/2024 10:36:10 01/20/20 24 01/21/2024 VITAM IN D, 25-HY DROXY vitamin D, 25-hydroxy 26.0 NG/mL 30.0-1 00.0 below low normal Vitam in D defic iency has been defin ed by the Insti tute of Medic ine and an Endoc rine Socie ty pract ice guide line as a level of serum 25-OH vitam in D less than 20 ng/mL (1,2) . The Endoc rine Socie ty went on to furth er defin e vitam in D insuf ficie ncy as a level betwe en 21 and 29 ng/mL (2). 1. IOM (Inst itute of Medic ine). 2010. Dieta ry refer ence intak es for calci um and D. Crystal helton [place]: The [facility] . 2. Isha price MF, Hermann mei [place], Patsy off-F sean i CHURCH, et al. Evalu ation , treat ment, and preve ntion of vitam in D defic iency : an Endoc rine Socie ty clini donnell pract ice guide line. JCEM. 2010; 96(7) :1911 -30. Not Available [facility] ([facility]) [address] [place], [address], 01/21/2024 10:36:11 01/20/20 24 01/21/2024 CREAT INE KINAS E,TOT AL creatine kinase,total 192 U/L 32-182 above high normal Not Available [facility] ([facility]) [address] [place], [address], 01/21/2024 10:36:11 01/20/20 24 01/21/2024 FSH AND LH LH 22.0 mIU/m L Adult Femal e Range Folli cular phase 2.4 - 12.6 Ovula tion phase 14.0 - 95.6 Lutea l phase 1.0 - 11.4 Postm enopa usal 7.7 - 58.5 Not Available [facility] ([facility]) [address] [place], [address], 01/24/2024 20:08:32 01/20/20 24 01/21/2024 FSH AND LH FSH 29.5 mIU/m L Adult Femal e Range Folli cular phase 3.5 - 12.5 Ovula tion phase 4.7 - 21.5 Lutea l phase 1.7 - 7.7 Postm enopa usal 25.8 - 134.8 Not Available [facility] ([facility]) [address] [place], [address], 01/24/2024 20:08:32 01/20/20 24 01/21/2024 TESTO STERO NE,FR EE AND TOTAL testosterone 11 NG/dL 4-50 Not Available [facility] [address] [facility], [place], [address], 01/24/2024 20:08:33 01/20/20 24 01/24/2024 TESTO STERO NE,FR EE AND TOTAL free testosterone (direct) 1.5 pg/mL 0.0-4. 2 Not Available [facility] ([facility]) [address] [facility], [place], [address], 01/24/2024 20:08:33 01/20/20 24 01/21/2024 PROGE STERO NE progesterone 0.2 NG/mL Folli cular phase 0.1 - 0.9 Lutea l phase 1.8 - 23.9 Ovula tion phase 0.1 - 12.0 Pregn ant First trime ster 11.0 - 44.3 Secon d trime ster 25.4 - 83.3 Third trime ster 58.7 - 214.0 Postm enopa usal 0.0 - 0.1 Not Available [facility] ([facility]) [address] [facility], [place], [address], 01/24/2024 20:08:33 06/07/20 24 06/08/2024 VITAM IN D, 25-HY DROXY vitamin D, 25-hydroxy 27.8 NG/mL 30.0-1 00.0 below low normal Vitam in D defic iency has been defin ed by the Insti tute of Medic ine and an Endoc rine Socie ty pract ice guide line as a level of serum 25-OH vitam in D less than 20 ng/mL (1,2) . The Endoc rine Socie ty went on to furth er defin e vitam in D insuf ficie ncy as a level betwe en 21 and 29 ng/mL (2). 1. IOM (Inst itute of Medic ine). 2010. Dieta ry refer ence intak es for calci um and D. Crystal helton [place]: The [facility] . 2. Isha price MF, Hermann mei [place], Patsy off-F errar i CHURCH, et al. Evalu ation , treat ment, and preve ntion of vitam in D defic iency : an Endoc rine Socie ty clini donnell pract ice guide line. JCEM. 2010; 96(7) :1911 -30. Not Available [facility] ([facility]) [address], [place], [address], 06/08/2024 08:22:34 04/22/20 23 04/22/2023 MAMMO , scree rajiv, tomos ynthe sis, bilat eral No observ ation record ed. [email or web address] [facility] [address], [place], [address], 04/25/2023 10:47:45 05/31/20 24 05/31/2024 XR, thora cic spine , 4 or more view No observ ation record ed. [facility] [address] [place], [address], 06/07/2024 14:35:20 05/31/20 24 05/31/2024 DEXA No observ ation record ed. [facility] [address] [place], [address], 06/07/2024 14:35:21 06/28/20 24 06/28/2024 MRI, thora cic spine , w/o contr ast No observ ation record ed. [email or web address] [facility] [address], [place], [address], 07/13/2024 09:23:43 Result Notes None recorded. Problems Name Problem SNOMED Code Status Onset Date Resolution Date Notes Provider Name and Address Organization Details Recorded Time Pain in limb 86189510 Active Not Available [facility] 3 01:47:49 Diverticul itis 257883216 Active 2018 Not Available [facility] 3 01:47:48 Hyperlipid emia 29085889 Active 2022 Not Available [facility] 3 01:47:49 Vitamin D deficiency 38047629 Active 2022 Not Available [facility] 3 01:47:49 Bronchitis 39887020 Active 2023 JUAN Garcia [address], [address], [place], [address] , [facility] 4 16:21:18 Acute bronchitis 96050225 Active 2023 Eula Thomas RN null, [place] [facility] 4 14:28:17 Serum vitamin B12 below reference range 791118364 Active 2023 JUAN Garcia [address], [address], [place], [address] , [facility] 4 09:49:54 Screening for malignant neoplasm of colon Active 2023 JUAN Garcia [address], [address], [place], [address] , [facility] 4 09:51:00 Hot sweats 804881928 Active 2023 Eula Thomas RN null, [place] - [facility] 4 10:09:41 Sinusitis 83482468 Active 2023 JUAN Garcia [address], [address], [place], [address] , [facility] 4 09:45:22 Muscle spasm of thoracic back [id number] 06 Active 2023 JUAN Garcia [address], [place], [address] , [facility] [facility] 4 09:47:51 Administra tion of influenza vaccine Active 2023 JUAN Garcia [address], [address], [place], [address] , [facility] 4 09:50:24 Administra tion of measles and mumps and rubella vaccine Active 2023 JUAN Garcia [address], [address], [place], [address] , [facility] 4 09:50:51 Administra tion of tetanus vaccine Active 2023 JUAN Garcia [address], [place], [address] , [facility] 4 09:51:11 Acute thoracic back pain 921366058 Active 2023 Eula Thomas RN null, [facility] 4 15:18:55 Pleurisy 324737392 Active 2023 JUAN Garcia [address], [address], [place], [address] , [facility] 4 14:43:36 Nausea 006492738 Active 2024 Eula Thomas RN null, [facility] 5 15:28:09 Strain of muscle of left shoulder [id number] 9105 Active 2024 JUAN Garcia [address], [address], [place], [address] , [facility] 5 13:33:53 Problem Notes None recorded. Procedures Surgical History Date Name Laterality Status Provider Name and Address Organization Details Recorded Time Colon Resection completed Not Available [facility] 09/15/2022 20:38:19 Appendectomy completed Not Available [facility] 09/15/2022 20:38:19 delivery completed Not Available [facility] 09/15/2022 20:38:19 delivery completed Not Available [facility] 09/15/2022 20:38:19 Ablation completed Not Available [facility] 20:38:19 Imaging Results None recorded. Procedure Notes None recorded. Medical Equipment None Reported. Allergies No known drug allergies Medications Name Sig Start Date Stop Date Status Note LastModified by Organization Details LastModified Time cyclobenz aprine 10 mg tablet Take 1 tablet every day by oral route at bedtime for 30 days. active Not Available Not Available No t Available cyanocoba chiquis (vit B-12) ER 1,000 mcg tablet,ex tended release Take 1 tablet by mouth once daily 04/13 completed not currentl y taking, made skin itchy Not Available Not Available Not Available promethaz ine-DM 6.25 mg-15 mg/5 mL oral syrup Take 5 mL every 4 hours by oral route as needed for 10 days. 01/08 completed Not Available Not Available Not Available lisinopri l 20 mg-hydroc hlorothia zide 12.5 mg tablet TAKE 1 TABLET BY MOUTH ONCE DAILY active Not Available Not Available No t Available azithromy belen 250 mg tablet TAKE 2 TABLETS (500 MG) BY ORAL ROUTE ONCE DAILY FOR 1 DAY THEN 1 TABLET (250 MG) BY ORAL ROUTE ONCE DAILY FOR 4 DAYS active Not Available Not Available No t Available hydrocodo ne 5 mg-acetam inophen 325 mg tablet 12/20 completed Not Available Not Available Not Available prednison e 20 mg tablet Take 2 tabs PO twice daily for 2 days; 1 tab PO twice daily for 5 days; 1/2 tab PO twice daily for 2 days; 1/2 tab PO once for 1 day. TAKE 2ND DOSE EVERYDAY AT NOON-10 DAY COURSE active Not Available Not Available No t Available metronida zole 250 mg tablet 09/14 completed Not Available Not Available Not Available cyanocoba chiquis (vit B-12) 1,000 mcg tablet TAKE 1 TABLET BY MOUTH ONCE DAILY 01/08 completed duplicat e Not Available Not Available Not Available metronida zole 500 mg tablet TAKE ONE TABLET BY MOUTH AT 1 PM 2PM AND 10PM THE DAY BEFORE SURGERY. 10/06 completed Not Available Not Available Not Available ciproflox acin 500 mg tablet TAKE 1 TABLET BY MOUTH EVERY 12 HOURS 04/13 completed Not Available Not Available Not Available ondansetr on 8 mg disintegr ating tablet TAKE ONE TABLET AT 11AM WHEN STARTING BOWEL PREP TAKE ONE TABLET NEEDED EVERY 6 8 HOURS AFTER 12/30 completed Not Available Not Available Not Available amoxicill in 875 mg tablet TAKE 1 TABLET BY MOUTH TWICE DAILY UNTIL ALL TAKEN 01/08 completed Not Available Not Available Not Available magnesium oxide 400 mg (241.3 mg magnesium ) tablet TAKE 1 TABLET BY MOUTH ONCE DAILY active Not Available Not Available No t Available ranitidin e 150 mg tablet Take 1 tablet twice a day by oral route. 03/30 completed Not Available Not Available Not Available Gentle Laxative (bisacody l) 5 mg tablet,de layed release TAKE 2 TABLETS BY MOUTH TWICE DAILY 12/30 completed Not Available Not Available Not Available magnesium 500 mg (as magnesium oxide) tablet 07/27 completed Not Available Not Available Not Available cyanocoba chiquis (vit B-12) 1,000 mcg sublingua l tablet Place 1 tablet twice a day by sublingu al route for 30 days. 2024 active Not Available Not Available Not Avai lable ergocalci ferol (vitamin D2) 1,250 mcg (50,000 unit) capsule TAKE 1 CAPSULE BY MOUTH TWICE A WEEK WITH FOOD 01/08 completed Not Available Not Available Not Available polyethyl fawad glycol 3350 17 gram/dose oral powder DISSOLVE 238 GRAMS IN WATER AND TAKE BY MOUTH ONCE FOR ONE DOSE. 10/06 completed Not Available Not Available Not Available scopolami ne 1 mg over 3 days transderm al patch Apply 1 patch every 72 hours by transder mal route. active Not Available Not Available No t Available neomycin 500 mg tablet TAKE 2 TABLETS BY MOUTH AT 1PM 2PM AND 10PM THE DAY BEFORE SURGERY 10/06 completed Not Available Not Available Not Available Lactobaci llus acidophil us capsule Take 1 capsule by oral route. 02/02 completed Not Available Not Available Not Available albuterol sulfate HFA 90 mcg/actua tion aerosol inhaler Inhale 2 puffs every 4 hours by inhalati on route as needed for 30 days. active Not Available Not Available No t Available oxycodone 5 mg tablet TAKE 1 TABLET BY MOUTH EVERY 4 HOURS NEEDED FOR PAIN FOR UP TO 15 DAYS 10/06 completed Not Available Not Available Not Available cholecalc iferol (vitamin D3) 25 mcg (1,000 unit) capsule Take 1 capsule every day by oral route before meal(s) for 90 days, for for low vitamin D. 2024 active Not Available Not Available Not Avai lable ezetimibe 10 mg tablet Take 1 tablet every day by oral route after meal(s) for 30 days. active Not Available Not Available No t Available Atrovent HFA 17 mcg/actua tion aerosol inhaler Inhale 2 puffs 4 times a day by inhalati on route as directed for 10 days. 01/08 completed Not Available Not Available Not Available Feosol 325 mg (65 mg iron) tablet Take 1 tablet every day by oral route. 12/30 completed Not Available Not Available Not Available losartan 100 mg-hydroc hlorothia zide 12.5 mg tablet Take 1 tablet by mouth once daily active Not Available Not Available No t Available EC-Naprox en 500 mg tablet,de layed release Take 1 tablet by mouth twice daily 01/03 completed Not Available Not Available Not Available Flucelvax Quad (PF) 60 mcg (15 mcg x 4)/0.5 mL IM syringe PHARMACY ADMINIST ERED 07/30 completed Not Available Not Available Not Available Vitals Date Recorded Body mass index (BMI) Body height Oxygen saturation Heart rate Body temperature Body weight Systolic And Diastolic Provider Name and Address Organization Details Last Updated DateTime 3 37.7 kg/m2 157.48 cm 98 % 114 /min 96.3 [degF] 82088.0 3 g 140/90 mm[Hg] Not Available [facility] 3 20:38:33 Date Recorded Body height Body mass index (BMI) Body weight Body temperature Heart rate Oxygen saturation Systolic And Diastolic Provider Name and Address Organization Details Last Updated DateTime 3 157.48 cm 37.7 kg/m2 02782.0 3 g 97.2 [degF] 100 /min 98 % 122/80 mm[Hg] PORTIA Wyatt [facility] [employer] 3 14:31:09 Date Recorded Body height Body mass index (BMI) Body weight Body temperature Heart rate Oxygen saturation Respiratory rate Systolic And Diastolic Provider Name and Address Organization Details Last Updated DateTime 4 157.48 cm 37.1 kg/m2 85413.2 5 g 96.7 [degF] 87 /min 98 % 16 /min 108/82 mm[Hg] Araceli Singleton RN [facility] 4 09:39:43 Date Recorded Body height Body mass index (BMI) Body weight Body temperature Heart rate Respiratory rate Oxygen saturation Systolic And Diastolic Provider Name and Address Organization Details Last Updated DateTime 4 157.48 cm 37.7 kg/m2 25393.0 3 g 97.4 [degF] 88 /min 16 /min 98 % 120/80 mm[Hg] Araceli Singleton RN [facility] 4 09:33:46 Date Recorded Body height Body mass index (BMI) Body weight Body temperature Heart rate Oxygen saturation Systolic And Diastolic Provider Name and Address Organization Details Last Updated DateTime 4 157.48 cm 35.8 kg/m2 39574.1 g 97.8 [degF] 96 /min 98 % 118/80 mm[Hg] Araceli Singleton RN [facility] 4 14:24:02 Social History Question Answer Notes LastModified by Myre[employer] Details LastModified Time Tobacco Smoking Status Former Smoker Lilian Marlyn oquendo [facility] 01/03/2023 14:27:05 What Is Your Level Of Caffeine Consumption? Moderate [id number] Information not available 09/15/2022 What Type Of Diet Are You Following? REGULAR [id number] Information not available 09/15/2022 When Did You Quit Smoking? 16+yearssince lastcigarette [email or web address] Information not available 01/03/2023 What Is Your Relationship Status? Single [id number] Information not available 09/15/2022 Do You Have Any Dietary Restrictions? No [email or web address] Information not available 01/03/2023 Sex: Female Functional Status Question Answer Note LastModified by Myre[employer] Details LastModified Time What is your level of alcohol consumption? 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 Occasional [id number] Information not available 09/15/2022 Mental Status None recorded. Family History Nothing Reported. Medical History Condition Response DEPRESSION (INCLUDING POST ) EXCESSIVE PERSPIRATION Y HEADACHES/MIGRAINES Y GI PROBLEMS Low Testosterone Y LIVER DISEASE HYPERTENSION ANEMIA/BLOOD DISORDER Y Gynecological HistoryNo gynecological history recorded. Obstetrics History GPAL:G 0 P 0 0 0 0 Immunizations Vaccine Type Date Status Note Provider Nam e and Address Organization Details Recorded Time Influenza, split virus, quadrivalent, preservative 1 completed Not Available [facility] 07/01/2023 01:47:49 COVID-19, mRNA, LNP-S, PF, dean-sucrose, 30 mcg/0.3 mL 4 completed Araceli Singleton RN null, [address] 04/17/2024 16:47:18 Tdap 4 completed JUAN Garcia [address], [address], [place], [address], [address] 04/28/2024 16:09:16 MMR 4 completed JUAN Garcia [address], [address], [place], [address], [address] 04/28/2024 16:09:16 Influenza, split virus, trivalent, PF 4 completed JUAN Garcia [address], [address], [place], [address], [address] 04/28/2024 16:09:16 Past Encounters Encounter ID Performer Location Encounter Start Date Encounter Closed Date Diagnosis/Indication Diagnosis SNOMED-CT Code Diagnosis ICD10 Code Diagnosis IMO Codes Diagnosis Note [id number] Belle Ramos MD [facility] [address] [place] [address] 09/23/2020 00:00:00 09/24/2020 05:39:56 [id number] Belle Ramos MD [facility] [address] [place] [address] 12/08/2020 00:00:00 12/08/2020 20:51:35 [id number] Belle Ramos MD [facility] [address] [place] [address] 10/06/2021 00:00:00 10/06/2021 20:47:05 [id number] Belle Ramos MD [facility] [address] [place] [address] 12/30/2021 00:00:00 12/30/2021 18:46:32 [id number] Gisell Díaz MD [facility] [address] [place] [address] 05/11/2022 00:00:00 05/11/2022 12:09:01 [id number] Belle Ramos MD [facility] [address] [place] [address] 08/27/2022 00:00:00 08/28/2022 10:15:58 [id number] Belle Ramos MD [facility] [address] [place] [address] 01/03/2023 14:25:10 01/03/2023 15:10:14 Adult health examination 558627391 Z00.00 Hyperlipidemia 19457919 E78.5 Screening for malignant neoplasm of colon 418718718 Z12.11 pt to check with insurance to see what they will cover. [id number] Rakesh Gutierrez MD [facility] [address] [place] [address] 01/09/2024 09:23:05 01/09/2024 09:54:30 Vitamin D deficiency 46487027 E55.9 Serum nichelle min B12 below reference range 371594679 R79.89 Hyperlipidemia 25319451 E78.5 Screening for malignant neoplasm of colon 592478589 Z12.11 [id number] Rakesh Gutierrez MD [facility] [address] [place] [address] 04/13/2024 09:23:35 04/13/2024 10:09:35 Muscle spasm of thoracic back 1159194017 07602 M62.830 Administra tion of influenza vaccine 25679639 Z23 Administra tion of measles and mumps and rubella vaccine 54887782 Z23 Administra tion of tetanus vaccine 019137502 Z23 [id number] Rakesh Gutierrez MD [facility] [address] [facility] [address] [place] [address] 06/07/2024 14:02:18 06/07/2024 14:43:57 Muscle spasm of thoracic back 2023104194 86317 M62.830 Pleurisy 195851584 R09.1 Health Concerns Section Related Observation LastModified by Organization Detai ls LastModified Time None Recorded Concern Status LastModified by Organization Details LastModified Time None Recorded Advance Directives Directive None Recorded Payers Insurance Date Sequence Insurance Name Policy Number Policy Finney Covered Member ID Finney Member ID Guarantor Name 09/11/2024 1 [place] [facility] - OPEN ACCESS [id number] Zoë Penn [id number] OI Zoë Penn Notes Date Note Type Note Provider Name and Address Organization Details Recorded Time 01/03/2023 text/html Here today for a physical. No c/o anything. Has not had BW since 01/06. Has an appt. for mammogram in 04/16/23. Not UTD with colon cancer screening. No fmhx of colon cancer. Before she does anything wants to check with insurance to see what they cover. Belle Ramos MD [address], [place], [address], [employer] 01/03/2023 21:27:44 01/09/2024 text/html ROS as noted in the HPI numbness tingling feet , ankles JUAN Garcia [address], [place], [address], [employer] 01/15/2024 16:10:40 04/13/2024 text/html ROS as noted in the HPI muscle tight mid back , no strain , that she can recall JUAN Garcia [address], [place], [address], [employer] 04/28/2024 16:11:14 06/07/2024 text/html ROS as noted in the HPI thoracic back pain still there , yesterday and today aggravated by taking a deep breath . JUAN Garcia [address] [address], [place], [address], [facility] 06/07/2024 14:50:44 OBGyn Episode No OBEpisode recorded.
--- OUTSIDE RECORDS SUMMARY | 2025-06-26 21:04 | XMS_ITS | Clinical Summary ---
Author Organization [facility] Address [address] [place] [address] Care Team Providers Care Elementary Ell Teacher Name Role Phone Binh Goel MD Unavailable [phone] Avni Guzmán MD Unavailable [phone] Carmen Bcaa MD Unavailable [phone] Gladis Oneill MD Primary Care Provider [phone] Allergies No known active allergies Medications ergocalciferol (VITAMIN D) 50,000 unit capsule Take 50,000 Units by mouth 2 (two) times a week Takes on Tuesday and Tuesday. 0 9 Active magnesium oxide (MAG-OX) 500 mg (301.6 mg elemental) tabletIndicatio ns:constipation Take 500-1,000 mg by mouth daily with lunch Active cyanocobalamin, vitamin B-12, 1,000 mcg tablet extended release Take 1 tablet by mouth daily with lunch 0 Active MULTIVITAMIN ORAL Take 1 tablet by mouth daily with lunch One A Day Women's Active cetirizine (ZyrTEC) 10 mg tablet Take 10 mg by mouth as needed for allergies Active acetaminophen 500 mg capsuleIndicati ons:Pain Take 2 capsules (1,000 mg total) by mouth every 6 (six) hours as needed for pain 1 Active ibuprofen (ADVIL,MOTRIN) 600 mg tabletIndicatio ns:Pain,Postope rative Acute Pain Take 1 tablet (600 mg total) by mouth every 8 (eight) hours as needed for pain 1 Active naproxen (NAPROSYN) 500 mg tablet Active losartan-hydroC HLOROthiazide (HYZAAR) 100-12.5 mg per tabletIndicatio ns:hypertension Take 1 tablet by mouth daily with lunch 90 tablet 1 5 Active losartan-hydroC HLOROthiazide (HYZAAR) 100-12.5 mg per tabletIndicatio ns:hypertension Take 1 tablet by mouth daily with lunch 06/18/20 25 Discontinu ed(Reorder ) ferrous sulfate ER (Slow Release Iron) 140 mg (45 mg of elemental iron) tabletIndicatio ns:Iron Deficiency Anemia Take 140 mg by mouth daily with lunch 06/18/20 25 Discontinu ed(Patient Reported) mupirocin (BACTROBAN) 2 % ointmentIndicat ions:Localized bacterial skin infection Apply topically 3 (three) times a day 22 g 5 06/18/20 25 Discontinu ed(Patient Reported) Active Problems Problem Noted Date Diagnosed Date Pain in limb 06/18/2025 Muscle strain of left shoulder 09/10/2024 Nausea 08/22/2024 Acute thoracic back pain 05/28/2024 Spasm of thoracic back muscle 04/13/2024 Sinusitis 03/02/2024 Generalized hyperhidrosis 01/20/2024 Low serum vitamin B12 01/09/2024 Acute bronchitis 10/03/2023 Vitamin D deficiency 05/19/2023 Assessment & Plan (06/25/2025 12:57 PM MEDICAL ADMINISTRATIVE ASSISTANT): History of vitamin-D deficiency take supplements. Repeat level pending Orders: Vitamin D 25 hydroxy; Future Hyperlipidemia 01/03/2023 Status post gastrointestinal surgery, follow-up exam 01/15/2021 Diverticulitis 11/07/2020 Overview (11/07/2020): Added automatically from request for surgery [id number] Abnormal result of other cardiovascular function study 09/05/2019 Chest pain 09/05/2019 Iron deficiency 09/05/2019 Obesity 09/05/2019 Assessment & Plan (06/25/2025 12:57 PM MEDICAL ADMINISTRATIVE ASSISTANT): Chronic, not at goal Healthy, low carbohydrate lifestyle and exercise for 150min/week recommended Orders: Lipid panel; Future Comprehensive metabolic panel; Future CBC with auto differential; Future Hemoglobin A1c; Future Essential hypertension 07/03/2019 Assessment & Plan (06/25/2025 12:57 PM MEDICAL ADMINISTRATIVE ASSISTANT): Chronic, controlled. BP 126/68, stable. Continue losartan hydrochlorothiazide 100-12.5 mg daily Encouraged low-sodium diet and 30 minutes of exercise daily. Follow-up in 6 months. Orders: losartan-hydroCHLOROthiazide (HYZAAR) 100-12.5 mg per tablet; Take 1 tablet by mouth daily with lunch NAFLD (nonalcoholic fatty liver disease) 019 Overview (06/18/2025): 08/28/19 Fibroscan CAP 343, LSM 4.8 kPa Diverticulitis of large inte nicolás with perforation without abscess 04/26/2019 Encounters Date Type Department Care Team Description 06/18/2025 2:30 PM MEDICAL ADMINISTRATIVE ASSISTANT Office Visit [facility] Primary Care at [address] [address] Gladis Oneill MD Essential hypertension (Primary Dx); Right leg numbness; Vitamin B12 deficiency; Vitamin D deficiency; Class 2 obesity due to excess calories without serious comorbidity with body mass index (BMI) of 39.0 to 39.9 in adult 04/04/2025 Results Follow-Up [facility] Convenient Care at [address] [address] Carmen Saavedra NP Aerobic and anaerobic culture and gram stain Wound Leg, left 03/28/2025 7:51 PM CDT - 03/28/2025 11:59 PM [place] [address] Localized bacterial skin infection Discharge Disposition: Discharge to home or self care 03/28/2025 6:15 PM CDT Office Visit [facility] Care at [address] [address] Della Fritz NP Localized bacterial skin infection (Primary Dx); Yeast infection of the skin from Last 3 Months Immunizations Immunization Administration Dates Next Due COVID-19 mRNA (Onfido) 0.3 m L (30 mcg) vaccine (12 years and up) 04/17/2024 Influenza, Quadrivalent, Patricia l Culture-based MDCK, Preservative Free, Antibiotic Free, Intramuscular 04/20/2020 Influenza, Quadrivalent, Split, Intramuscular Influenza, Split 07/18/2017 Influenza, Trivalent, Preservative Free, Intramu scular 04/26/2025,04/13/2024 MMR 04/13/2024,05/22/1991 Tdap 04/13/2024 ZOSTER Recombinant 03/04/2022,12/09/2021 Surgical History Surgery Date Site/Laterality Comments SECTION APPENDECTOMY COLON SURGERY 12/17/2020 Laparoscopic-assisted left colectomy. LASIK 2014? Medical History Medical History Date Comments Nausea 08/22/2024 Hypertension 2020 Family History Medical History Relation Name Comments Epilepsy Father Cancer Maternal Grandmother Diabetes Maternal Grandmother Arthritis Mother Cancer Mother Diverticulitis Mother Hypertension Mother Non-Hodgkin's Lymphoma Mother Obesity Mother Heart attack Mother's Brother Cancer Sister Yvette Anesthesia problems Neg Hx Relation Name Status Comments Father Maternal Grandmother Mother Mother's Brother Sister Yvette Alive Social History Tobacco Use Types Packs/Day Years Used Date Smoking Tobacco: Former Cigarettes Q uit: 2000 Smokeless Tobacco: Never Alcohol Use Standard Drinks/Week Comments Not Currently 0 (1 standard drink = 0.6 oz pur e alcohol) Social Connection and Isolation Panel Answer Date Recorded In a typical week, how many times do you talk on the phone with family, friends, or neighbors? Three times a week 12/17/2020 How often do you get togethe r with friends or relatives? Twice a week 12/17/2020 How often do you attend chur ZIIBRA or taoist services? Never 12/17/2020 Do you belong to any clubs o r organizations such as samaritan groups, unions, fraternal or athletic groups, or school groups? No 12/17/2020 How often do you attend meet ings of the clubs or organizations you belong to? Never 12/17/2020 Marital Status Not on file 12/17/2020 Overall Financial Resource Strain (CARDIA) Answe r Date Recorded How hard is it for you to pa y for the very basics like food, housing, medical care, and heating? Not hard at all 12/17/2020 PHQ-2 Answer Date Recorded PHQ-2 Total Score (If total score is 3 or more points, staff should administer the PHQ-9) 0 06/18/2025 Hunger Vital Sign Answer Date Recorded Within the past 12 months, y ou worried that your food would run out before you got the money to buy more. Never true 12/18/19 21 Within the past 12 months, t he food you bought just didn't last and you didn't have money to get more. Never true 12/17/2020 PRAPARE - Transportation Answer Date Re corded In the past 12 months, has l ack of transportation kept you from medical appointments or from getting medications? No 08/2020 In the past 12 months, has l ack of transportation kept you from meetings, work, or from getting things needed for daily living? No 12/17/2020 AUDIT-C Answer Date Recorded Q1: How often do you have a drink containing alcohol? Never 06/18/2025 Q2: How many drinks containi ng alcohol do you have on a typical day when you are drinking? Patient does not drink Q3: How often do you have si x or more drinks on one occasion? Never 06/18/2025 Comments No Sex and Gender Information Value Date Recorded Sex Assigned at Not on file Legal Sex Female 1:53 PM CDT Gender Identity Female 11/17/2021 7:01 PM CDT Sexual Orientation Straight 11/17/2021 7: 01 PM CDT Last Filed Vital Signs Vital Sign Reading Time Taken Comments Blood Pressure 126/68 06/18/2025 2:35 PM MEDICAL ADMINISTRATIVE ASSISTANT Pulse 100 06/18/2025 2:35 PM MEDICAL ADMINISTRATIVE ASSISTANT Temperature 36.4 C (97.5 F) 06/18/2025 2:35 PM MEDICAL ADMINISTRATIVE ASSISTANT Respiratory Rate 18 06/18/2025 2:35 PM MEDICAL ADMINISTRATIVE ASSISTANT Oxygen Saturation 99% 06/18/2025 2:35 PM MEDICAL ADMINISTRATIVE ASSISTANT Inhaled Oxygen Concentration - - Weight 98.8 kg (217 lb 12.8 oz) 06/18/2025 2:35 PM MEDICAL ADMINISTRATIVE ASSISTANT Height 157.5 cm (5' 2.01) 06/18/2025 2:35 PM CS T Body Mass Index 39.82 06/18/2025 2:35 PM MEDICAL ADMINISTRATIVE ASSISTANT Plan of Treatment Health Maintenance Due Date Last Done Comments Hepatitis C Screening 1971 Hepatitis B Screening 1989 Regular Well Visit/Exam 18-64 1989 Pneumococcal vaccine <65 (1 of 2 - PCV) 06/03/2026 Postponed from 1990 (Patient declined, but will receive in the future) Breast Cancer Screening-Mammogram 06/18/2026 06/18/2025 Cervical Cancer Screening 06/18/2026 06/18/2025 Depression Screening 06/18/2026 06/18/2025 Colon Cancer Screening-Colonoscopy 07/20/2031 07/20/2021 DTaP/Tdap/Td Vaccine (2 - Td or Tdap) 04/13/2034 04/13/2024 Zoster Vaccine Completed 03/04/2022, 12/09/2021 Covid-19 Vaccine Completed 04/26/2025, 07/2023, 07/23/2023, Additional history exists Influenza Vaccine Completed 04/26/2025, , 04/20/2021, Additional history exists Procedures Procedure Name Priority Date/Time Associated Diagnosis Comments AEROBIC AND ANAEROBIC CULTURE AND GRAM STAIN Routine 03/28/2025 7:51 PM CDT Localized bacterial skin infection from Last 3 Months Results * (ABNORMAL) Aerobic and anaerobic culture and gram stain Wound Leg, left (03/28/2025 7:51 PM CDT) Direct Specimen Exam Stain: No polymorphonuclear leukocytes seen. No organisms seen. Comment:Testing performed by : [facility], [address] [facility], [place]., [address] Report Final Report: Few Staphylococcus aureus Methicillin susceptible (MSSA) by penicillin binding protein 2a (PBP2a) testing. Rare Streptococcus pyogenes (Group A Streptococci) Streptococcus pyogenes is uniformly susceptible to beta-lactam antibiotics and vancomycin. Routine susceptibility testing is not performed. (.) [place] Comment:Testing performed by : [facility], [address] [place]., [address] Organism STAPHYLOCOCCUS AUREUS [place] Organism STREPTOCOCCUS PYOGENES (GROUP A STREPTOCOCCI) [place] Wound (Leg, left) 03/28/2025 7:51 PM CDT 03/28/2025 11:56 PM CDT Narrative [place] - 04/04/2025 11:17 AM CDT Specimen received on an ESwab. Testing performed by [facility] ([phone]) Specimens submitted from normally sterile body sites will have all bacterial morphotypes identified. Specimens that contain grossly mixed fransisca and/or are from body sites that are not normally sterile will be examined for Staphylococcus aureus, Pseudomonas aeruginosa, beta-hemolytic strep, vancomycin-resistant Enterococcus, Bacteroides, Parabacteroides, Clostridium perfringens and fungus. If any of these are isolated, the organism will be reported. Current interpretive data was last revised on 2019. Organism Antibiotic Method Susceptibility Staphylococcus aureus Vancomycin INTERPRETATION Susceptible Staphylococcus aureus Trimethoprim with Sulfamethoxazole INTERPRETATION Susceptible Staphylococcus aureus Linezolid INTERPRETATION Susceptible Staphylococcus aureus Doxycycline INTERPRETATION Susceptible Staphylococcus aureus Clindamycin INTERPRETATION Susceptible Staphylococcus aureus Erythromycin INTERPRETATION Susceptible Staphylococcus aureus Oxacillin INTERPRETATION Susceptible Staphylococcus aureus Cefazolin INTERPRETATION Susceptible Staphylococcus aureus Ceftriaxone INTERPRETATION Susceptible Della Fritz NP LAB MICROBIOLOGY - GENERAL ORD ERABLES Final Result [place] [id number] Department [place] [address] from Last 3 Months Insurance [facility] [id number] Advance Directives For more information, please contact: [phone] * Full Code (Latest Code Status on File) Date Activated Date Inactivated Comments 12/17/2020 3:22 PM 12/19/2020 7:46 PM Care Teams Elementary Ell Teacher Relationship Specialty Start Date End Date Gladis Oneill MD [address] [place] [address] PCP - General Family Medicine 06/18/25 Binh Goel MD Referring Physician Gastroenterology 10/31/20 Avni Guzmán MD [phone] [place] [address] Surgeon Colon and Rectal Surgery 01/20/21 Carmen Baca MD [address] [place] [address] Supervisor [employer] Gynecology 01/20/21
== END 2025-06-26 16:53 | disposition home or self-care (01) ==
LOC: ANHLAB 16:53
PROVIDERS: PCP Nurse Practitioner; Visit Provider Anesthesiology
DX: I10 Essential (primary) hypertension (principal)
CPT/HCPCS: 36415; 80048

== ENCOUNTER 2025-06-29 07:11 | Outpatient (CLI) | payer OTHER, SELFPAY ==
--- NOTE | 2025-06-29 | ECG_ITS ---
Test Date: 2025-06-29 07:35:52 Measurements Intervals Ethel Rate: 86 P: 47 NM: 169 QRS: 32 QRSD: 99 T: 46 QT: 358 QTc: 429 Interpretive Statements SINUS RHYTHM NORMAL ECG No previous ECG available for comparison Electronically Signed On 06-29-2025 08:08:43 INHALATION THERAPY TEACHER by Lg Mcdaniels D.O.
== END 2025-06-29 07:12 | disposition home or self-care (01) ==
PROVIDERS: PCP Nurse Practitioner; Visit Provider Anesthesiology
DX: Z01.811 Encounter for preprocedural respiratory examination (principal); I10 Essential (primary) hypertension
CPT/HCPCS: 93005

== ENCOUNTER 2025-07-01 00:30 | Day surgery (SDC) | payer OTHER, SELFPAY ==
[2025-06-26 10:29] VITALS: BMI 41.1
--- NOTE | 2025-06-26 11:05 | SUR.PREOP ---
[facility] has started construction of its new state of the art ER which will open Spring 2026. With this, we anticipate parking may be a challenge for some our surgical patients and families. Parking spaces are limited but are available for all Surgical, obstetrics, and ER patients sharing this lot. If you arrive and find you are having a hard time finding a parking space, please note that we understand the challenges, please drive around the hospital and park near Hospital Entrance 1. When you enter this entrance, you can ask a volunteer to direct or take you back to the surgical waiting area to check in. We appreciate everyone?s understanding of these expected challenges while we build for your future. Report to the Outpatient Waiting Room, entrance under the green pavilion located off [address], at time ___615____ on date __07/01/25 . Planned Procedure Time: ___815 .? Time changes happen often and if your time is changed the preop area will call you the afternoon before. - You and your visitor will be asked to self-screen and do not enter if you have any COVID symptoms. Please call surgeon if you need to reschedule. - A mask is optional within the hospital at this time. Patients may have clear liquids (water, carbonated beverages, clear teas, apple juice) until 3 hours prior to surgery with a maximum of 20 ounces. - No food from midnight until time of surgery and no smoking, or chewing tobacco (or any form of nicotine). No chewing gum, candy or mints. Take only the following medications with a SIP of water on the morning of surgery: NA DO NOT STOP ANY OF YOUR OTHER PRESCRIPTION MEDICATIONS PRIOR TO SURGERY EXCEPT THE FOLLOWING Hold all vitamins and supplements for 3 days per anesthesiologist. stop 06/28/25 Medications to discontinue per physician NA Date to take last dose Please no make-up, nail lao, hairspray, perfume, deodorant, or body powder the day of surgery.? No jewelry (including any body piercings) or valuables the day of surgery, leave them at home.? Please take a shower or bath the night before, or the morning of, surgery with an antibacterial soap.? Wear comfortable, loose fitting clothing.? Children are encouraged to wear pajamas. - Jewelry must be removed prior to entering the operating room.? Rings and piercings that are not removed may be cut off. - The hospital will not accept responsibility for valuables.? - Please leave all valuables, including medications, at home the day of surgery. If you are going home after surgery, a licensed charter and tour bus driver must drive you home.? - NO public transportation without another adult if you receive anesthesia. - We recommend that an adult stay with you for 24 hours following discharge. - We also recommend that you do not drive, make important decision, drink alcoholic beverages, or take any drugs that were not prescribed by your health care provider for at least 24 hours after your discharge time. Follow any additional instructions given to you from your surgeon. Telephone instructions given to patient and asked if any additional questions and then verbalized understanding. Patient advised to call surgeon office or pre surgery nurse liaison [phone] if any additional questions.
--- OUTSIDE RECORDS SUMMARY | 2025-07-01 00:33 | XMS_ITS | Data Portability ---
Author Organization [facility] Address [address], [address] [place] [address] Care Team Providers Care Masonry Inspector Name Role Phone GINA VELASCOAR Primary Care [...] Tobacco Smoking Status Former Smoker Marcin oquendo [place] - Beatriz Mccoy MD 11/28/2018 11:24:23 What Was The Date Of Your Most Recent Tobacco Screening? 11/28/2018 Information not available 02/08/2019 Sun Exposure Moderate [email or web address] Information not available 11/28/2018 Do You Use Sunscreen Routinely? No [email or web address] Information not available 11/28/2018 Tanning Bed Exposure Yes [email or web address] Information not available 11/28/2018 How Many Years Have You Smoked Tobacco? 2 [email or web address] Information not available 11/28/2018 Sex: Unknown Functional Status Question Answer Note LastModified by Organizat ion Details LastModified Time What is your level of alcohol consumption? Occasional [email or web address] Information not available 11/28/2018 Mental Status None recorded. Family History Relationship Description Onset Age of this Age Resolved Age Notes LastModified by Organization Details LastModified Time Mother Non-Hodgkin' s lymphoma (clinical) [email or web address] Not available 11:22:47 Mother Malignant neoplasm of bone [id number] Not available 11/15 11:22:56 Sister Malignant neoplasm of thyroid gland [email or web address] Not available 11/15 11:23:13 Maternal Grandmother Malignant neoplasm of uterus [id number] Not available 11/15 11:23:30 Maternal Grandmother Diabetes mellitus [email or web address] Not available 11/15 11:23:56 Maternal Uncle Malignant melanoma [email or web address] Not available 11/15 11:23:47 Medical History Condition [...] [id number] Beatriz Mccoy MD Main Office [address] [address] 11/28/2018 11:15:18 11/28/2018 12:07:50 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 605620282 D22.5 Melanocyti c nevus of skin of thigh 999523713 D22.71 Melanocyti c nevus of face [id number] D22.30 Health Concerns Section Related Observation LastModified by Organization Detai ls LastModified Time None Recorded Concern Status LastModified by Organization Details LastModified Time None Recorded Advance Directives Directive None Recorded Payers Insurance Date Sequence Insurance Name Policy Number Policy Finney Covered Member ID Finney Member ID Guarantor Name 11/28/2018 1 [employer] - DOS PRIOR TO 21 - [facility] [employer] [facility] Zoë Mcraeick [id number] Xanthe Fili Notes Date Note Type [...] was reviewed.no f/c Beatriz Mccoy MD [address] [facility], [address], [place], [address], [facility] [place] Beatriz Mccoy MD 12/02/2018 10:43:03 OBGyn Episode No OBEpisode recorded.
--- OUTSIDE RECORDS SUMMARY | 2025-07-01 00:33 | XMS_ITS | Data Portability ---
Author Organization [place] [facility], Main Office Address [address] [place] [address] Assessment No assessment recorded. Plan of Treatment Reminders Order Date Submit Date Provider Last Modified By Organization Details Last Modified Time Details Appointments None recorded. Lab vitamin D, 25-hydroxy, total, serum 2023 024 [email or web address] 2 [facility], [address] [place] [address], [address], 4 09:28:24 lipid panel, serum 2023 024 [email or web address] [facility], [address] [place] [address], [address], 4 09:28:24 CMP, serum or plasma 2023 024 [email or web address] [facility], [address] [place] [address], [address], 4 09:28:24 CK (creatine kinase), total, serum 2023 024 [email or web address] 2 [facility], [address] [place] [address], [address], 4 09:28:24 TSH + free T4, serum 2023 024 [email or web address] 2 [facility], [address] [place] [address], [address], 4 09:28:24 CBC w/ auto diff 2023 024 [email or web address] [facility], [address] [facility] [address], [place], [address], 4 09:28:25 vitamin B12 + folate, serum or blood 2023 024 [email or web address] [facility], [address] [facility] [address], [place], [address], 4 09:28:24 lipid panel, serum 2022 023 [email or web address] [facility], [address] [facility] [address], [place], [address], 3 08:23:11 CMP, serum or plasma 2022 023 [email or web address] [facility], [address] [facility] [address], [place], [address], 3 08:23:10 Referral gastroenter ologist referral - Please call patient to schedule an appointment . Thank you. 2023 024 [email or web address] Gerardo Vincent MD, [address], [address], [place], [address], 4 09:05:22 Procedures None recorded. Surgeries None recorded. Imaging MRI, thoracic spine, w/o contrast - this is no better . been going on since February , no better; has tried muscle relaxer and had xray on 05/31/24 *Please call pt to schedule* 2023 024 [facility], [address], [facility] [address], [place], [address], 4 12:50:43 Medication Orders prednisone 20 mg tablet 2023 024 [facility] [address], [place], [address], 4 14:40:51 cyclobenzap rine 10 mg tablet 2023 024 [email or web address] 200 [facility] [address], [address], [place], [address], 4 09:48:54 cyanocobala min (vit B-12) 1,000 mcg sublingual tablet 2023 024 [email or web address] [facility] [address], [address], [place], [address], 4 09:30:39 Patient TargetsNo targets recorded. Patient Instructions Encounter Date Encounter Id Patient Instructions Last Modified By Organization Details Last Modified Time 06/07/2024 [id number] Advised ibuprofe n and heat Not available 06/07/2024 14:45:04 Reason for Referral Imaging Nurse Referral for Screening for malignant neoplasm of colon Please call patient to schedule an appointment. Thank you. Referring Physician: Sukhwinder Cardoza, Family Medicine, Encounter Date: 01/09/2024 Results Created Date Observation Date Name Description Value Unit Range Abnormal Flag Note LastModifiedBy Organization Detail LastModifiedTime 02/15/2002/15/2023 COMP. METAB OLIC PANEL (14) glucose 93 mg/dL 70-99 Not Available [facility] ([facility]) [address] [place], [address], 02/15/2023 03:07:41 02/15/2002/15/2023 COMP. METAB OLIC PANEL (14) BUN 13 mg/dL 6-24 Not Available [facility] ([facility]) [address] [place], [address], 02/15/2023 03:07:41 02/15/20 23 02/15/2023 COMP. METAB OLIC PANEL (14) creatinine 0.84 mg/dL 0.57-1 .00 Not Available [facility] ([facility]) [address] [place], [address], 02/15/2023 03:07:41 02/15/20 23 02/15/2023 COMP. METAB OLIC PANEL (14) eGFR 84 mL/mi n/1.7 3 >59 Not Available [facility] ([facility]) [address] [facility], [place], [address], 02/15/2023 03:07:41 02/15/20 23 02/15/2023 COMP. METAB OLIC PANEL (14) BUN/creatini ne ratio 15 9-23 Not Available [facility]) [address] [facility], [place], [address], 02/15/2023 03:07:41 02/15/20 23 02/15/2023 COMP. METAB OLIC PANEL (14) sodium 140 mmol/ L 134-14 4 Not Available [facility] ([facility]) [address] [facility], [place], [address], 02/15/2023 03:07:41 02/15/20 23 02/15/2023 COMP. METAB OLIC PANEL (14) potassium 4.4 mmol/ L 3.5-5. 2 Not Available [facility] ([facility]) [address] [facility], [place], [address], 02/15/2023 03:07:41 02/15/20 23 02/15/2023 COMP. METAB OLIC PANEL (14) chloride 103 mmol/ L 96-106 Not Available [facility] ([facility]) [address] [facility], [place], [address], 02/15/2023 03:07:41 02/15/20 23 02/15/2023 COMP. METAB OLIC PANEL (14) carbon dioxide, total 25 mmol/ L 20-29 Not Available [facility] ([facility]) [address] [facility], [place], [address], 02/15/2023 03:07:41 02/15/20 23 02/15/2023 COMP. METAB OLIC PANEL (14) calcium 9.3 mg/dL 8.7-10 .2 Not Available [facility] ([facility]) [address] [place], [address], 02/15/2023 03:07:41 02/15/20 23 02/15/2023 COMP. METAB OLIC PANEL (14) protein, total 6.3 g/dL 6.0-8. 5 Not Available [facility] ([facility]) [address] [place], [address], 02/15/2023 03:07:41 02/15/20 23 02/15/2023 COMP. METAB OLIC PANEL (14) albumin 4.3 g/dL 3.8-4. 9 Not Available [facility] ([facility]) [address] [place], [address], 02/15/2023 03:07:41 02/15/20 23 02/15/2023 COMP. METAB OLIC PANEL (14) globulin, total 2.0 g/dL 1.5-4. 5 Not Available [facility] ([facility]) [address] [place], [address], 02/15/2023 03:07:41 02/15/20 23 02/15/2023 COMP. METAB OLIC PANEL (14) A/G ratio 2.2 1.2-2. 2 Not Available [facility] ([facility]) [address] [facility] [place], [address], 02/15/2023 03:07:41 02/15/20 23 02/15/2023 COMP. METAB OLIC PANEL (14) bilirubin, total 0.5 mg/dL 0.0-1. 2 Not Available [facility] ([facility]) [address] [facility] [place], [address], 02/15/2023 03:07:41 02/15/20 23 02/15/2023 COMP. METAB OLIC PANEL (14) alkaline phosphatase 52 IU/L 44-121 Not Available [facility] [address] [place], [address], 02/15/2023 03:07:41 02/15/20 23 02/15/2023 COMP. METAB OLIC PANEL (14) AST (SGOT) 17 IU/L 0-40 Not Available [facility] ([facility]) [address] [place], [address], 02/15/2023 03:07:41 02/15/20 23 02/15/2023 COMP. METAB OLIC PANEL (14) ALT (SGPT) 19 IU/L 0-32 Not Available [facility] ([facility] [address] [place], [address], 02/15/2023 03:07:41 02/15/20 23 02/15/2023 LIPID PANEL cholesterol, total 173 mg/dL 100-19 9 Not Available [facility] ([facility] [address] [place], [address], 02/15/2023 03:07:43 02/15/20 23 02/15/2023 LIPID PANEL triglyceride s 117 mg/dL 0-149 Not Available [facility]) [address] [place], [address], 02/15/2023 03:07:43 02/15/20 23 02/15/2023 LIPID PANEL HDL cholesterol 46 mg/dL >39 Not Available [facility] [address] [place], [address], 02/15/2023 03:07:43 02/15/20 23 02/15/2023 LIPID PANEL VLDL cholesterol donnell 21 mg/dL 5-40 Not Available [facility] [address] [place], [address], 02/15/2023 03:07:43 02/15/20 23 02/15/2023 LIPID PANEL LDL chol calc (nih) 106 mg/dL 0-99 above high normal Not Available [facility] ([facility]) [address] [facility], [place], [address], 02/15/2023 03:07:43 02/15/20 23 02/15/2023 LIPID PANEL comment: [employer] Not Available [facility] ([facility]) [address] [facility], [place], [address], 02/15/2023 03:07:43 06/23/20 23 06/23/2023 VITAM IN D 25-HY DROXY [id number] 34.9 NG/mL 30-100 Vitam in D Statu s: Defic ient: <20 ng/mL Insuf ficie nt: 20-29 ng/mL Suffi cient : 30-10 0 ng/mL Not Available [facility] (Lab) [address] [place], [address], 06/23/2023 22:11:17 01/20/20 24 01/21/2024 TSH+F REE T4 TSH 0.842 uIU/m L 0.450- 4.500 Not Available [facility] ([facility]) [address] [facility], [place], [address], 01/21/2024 10:36:09 01/20/20 24 01/21/2024 TSH+F REE T4 T4,free(dire ct) 1.37 NG/dL 0.82-1 .77 Not Available [facility] ([facility]) [address] [facility], [place], [address], 01/21/2024 10:36:09 01/20/20 24 01/21/2024 CBC WITH DIFFE RENTI AL/PL ATELE T WBC 5.1 x10e3 /uL 3.4-10 .8 Not Available [facility] ([facility]) [address] [facility], [place], [address], 01/21/2024 10:36:09 01/20/20 24 01/21/2024 CBC WITH DIFFE RENTI AL/PL ATELE T RBC 4.54 x10e6 /uL 3.77-5 .28 Not Available [facility] ([facility]) [address] [place], [address], 01/21/2024 10:36:09 01/20/20 24 01/21/2024 CBC WITH DIFFE RENTI AL/PL ATELE T hemoglobin 13.5 g/dL 11.1-1 5.9 Not Available [facility] ([facility]) [address] [place], [address], 01/21/2024 10:36:09 01/20/20 24 01/21/2024 CBC WITH DIFFE RENTI AL/PL ATELE T hematocrit 39.9 % 34.0-4 6.6 Not Available [facility] ([facility]) [address] [place], [address], 01/21/2024 10:36:09 01/20/20 24 01/21/2024 CBC WITH DIFFE RENTI AL/PL ATELE T MCV 88 fL 79-97 Not Available [facility] ([facility]) [address] [place], [address], 01/21/2024 10:36:09 01/20/20 24 01/21/2024 CBC WITH DIFFE RENTI AL/PL ATELE T MCH 29.7 pg 26.6-3 3.0 Not Available [facility] ([facility]) [address] [place], [address], 01/21/2024 10:36:09 01/20/20 24 01/21/2024 CBC WITH DIFFE RENTI AL/PL ATELE T MCHC 33.8 g/dL 31.5-3 5.7 Not Available [facility] ([facility]) [address] [place], [address], 01/21/2024 10:36:09 01/20/20 24 01/21/2024 CBC WITH DIFFE RENTI AL/PL ATELE T RDW 13.7 % 11.7-1 5.4 Not Available [facility] ([facility]) [address] [facility], [place], [address], 01/21/2024 10:36:09 01/20/20 24 01/21/2024 CBC WITH DIFFE RENTI AL/PL ATELE T platelets 259 x10e3 /uL 150-45 0 Not Available [facility] ([facility]) [address] [facility], [place], [address], 01/21/2024 10:36:09 01/20/20 24 01/21/2024 CBC WITH DIFFE RENTI AL/PL ATELE T neutrophils 42 % not estab. Not Available [facility] ([facility]) [address] [facility], [place], [address], 01/21/2024 10:36:09 01/20/20 24 01/21/2024 CBC WITH DIFFE RENTI AL/PL ATELE T lymphs 48 % not estab. Not Available [facility]) [address] [facility], [place], [address], 01/21/2024 10:36:09 01/20/20 24 01/21/2024 CBC WITH DIFFE RENTI AL/PL ATELE T monocytes 7 % not estab. Not Available [facility] ([facility]) [address] [facility], [place], [address], 01/21/2024 10:36:09 01/20/20 24 01/21/2024 CBC WITH DIFFE RENTI AL/PL ATELE T eos 2 % not estab. Not Available [facility] ([facility]) [address] [place], [address], 01/21/2024 10:36:09 01/20/20 24 01/21/2024 CBC WITH DIFFE RENTI AL/PL ATELE T basos 1 % not estab. Not Available [facility]) [address] [facility] [place], [address], 01/21/2024 10:36:09 01/20/20 24 01/21/2024 CBC WITH DIFFE RENTI AL/PL ATELE T immature cells [employer] Not Available [facility] ([facility]) [address] [facility], [place], [address], 01/21/2024 10:36:09 01/20/20 24 01/21/2024 CBC WITH DIFFE RENTI AL/PL ATELE T neutrophils (absolute) 2.1 x10e3 /uL 1.4-7. 0 Not Available [facility] ([facility]) [address] [facility], [place], [address], 01/21/2024 10:36:09 01/20/20 24 01/21/2024 CBC WITH DIFFE RENTI AL/PL ATELE T lymphs (absolute) 2.4 x10e3 /uL 0.7-3. 1 Not Available [facility] ([facility]) [address] [facility], [place], [address], 01/21/2024 10:36:09 01/20/20 24 01/21/2024 CBC WITH DIFFE RENTI AL/PL ATELE T monocytes(ab solute) 0.4 x10e3 /uL 0.1-0. 9 Not Available [facility] ([facility]) [address] [place], [address], 01/21/2024 10:36:09 01/20/20 24 01/21/2024 CBC WITH DIFFE RENTI AL/PL ATELE T eos (absolute) 0.1 x10e3 /uL 0.0-0. 4 Not Available [facility] ([facility]) [address] [place], [address], 01/21/2024 10:36:09 01/20/20 24 01/21/2024 CBC WITH DIFFE RENTI AL/PL ATELE T baso (absolute) 0.0 x10e3 /uL 0.0-0. 2 Not Available [facility] ([facility]) [address] [facility], [place], [address], 01/21/2024 10:36:09 01/20/20 24 01/21/2024 CBC WITH DIFFE RENTI AL/PL ATELE T immature granulocytes 0 % not estab. Not Available [facility] ([facility]) [address] [facility], [place], [address], 01/21/2024 10:36:09 01/20/20 24 01/21/2024 CBC WITH DIFFE RENTI AL/PL ATELE T immature grans (abs) 0.0 x10e3 /uL 0.0-0. 1 Not Available [facility] ([facility]) [address] [facility], [place], [address], 01/21/2024 10:36:09 01/20/20 24 01/21/2024 CBC WITH DIFFE RENTI AL/PL ATELE T NRBC [employer] Not Available [facility] ([facility]) [address] [facility], [place], [address], 01/21/2024 10:36:09 01/20/20 24 01/21/2024 CBC WITH DIFFE RENTI AL/PL ATELE T hematology comments: [employer] Not Available [facility]) [address] [facility], [place], [address], 01/21/2024 10:36:09 01/20/20 24 01/21/2024 COMP. METAB OLIC PANEL (14) glucose 87 mg/dL 70-99 Not Available [facility] ([facility]) [address] [facility], [place], [address], 01/21/2024 10:36:10 01/20/20 24 01/21/2024 COMP. METAB OLIC PANEL (14) BUN 12 mg/dL 6-24 Not Available [facility] ([facility]) [address] [place], [address], 01/21/2024 10:36:10 01/20/20 24 01/21/2024 COMP. METAB OLIC PANEL (14) creatinine 0.76 mg/dL 0.57-1 .00 Not Available [facility] ([facility]) [address] [facility], [place], [address], 01/21/2024 10:36:10 01/20/20 24 01/21/2024 COMP. METAB OLIC PANEL (14) eGFR 94 mL/mi n/1.7 3 >59 Not Available [facility] ([facility]) [address] [facility], [place], [address], 01/21/2024 10:36:10 01/20/20 24 01/21/2024 COMP. METAB OLIC PANEL (14) BUN/creatini ne ratio 16 9-23 Not Available [facility] ([facility]) [address] [facility], [place], [address], 01/21/2024 10:36:10 01/20/20 24 01/21/2024 COMP. METAB OLIC PANEL (14) sodium 141 mmol/ L 134-14 4 Not Available [facility] ([facility]) [address] [facility], [place], [address], 01/21/2024 10:36:10 01/20/20 24 01/21/2024 COMP. METAB OLIC PANEL (14) potassium 4.2 mmol/ L 3.5-5. 2 Not Available [facility] ([facility]) [address] [facility], [place], [address], 01/21/2024 10:36:10 01/20/20 24 01/21/2024 COMP. METAB OLIC PANEL (14) chloride 103 mmol/ L 96-106 Not Available [facility]) [address] [facility], [place], [address], 01/21/2024 10:36:10 01/20/20 24 01/21/2024 COMP. METAB OLIC PANEL (14) carbon dioxide, total 25 mmol/ L 20-29 Not Available [facility]) [address] [facility], [place], [address], 01/21/2024 10:36:10 01/20/20 24 01/21/2024 COMP. METAB OLIC PANEL (14) calcium 9.7 mg/dL 8.7-10 .2 Not Available [facility] ([facility]) [address] [facility], [place], [address], 01/21/2024 10:36:10 01/20/20 24 01/21/2024 COMP. METAB OLIC PANEL (14) protein, total 6.8 g/dL 6.0-8. 5 Not Available [facility] ([facility]) [address] [facility], [place], [address], 01/21/2024 10:36:10 01/20/20 24 01/21/2024 COMP. METAB OLIC PANEL (14) albumin 4.8 g/dL 3.8-4. 9 Not Available [facility]) [address] [facility], [place], [address], 01/21/2024 10:36:10 01/20/20 24 01/21/2024 COMP. METAB OLIC PANEL (14) globulin, total 2.0 g/dL 1.5-4. 5 Not Available [facility]) [address] [place], [address], 01/21/2024 10:36:10 01/20/20 24 01/21/2024 COMP. METAB OLIC PANEL (14) bilirubin, total 0.4 mg/dL 0.0-1. 2 Not Available [facility] ([facility]) [address] [facility], [place], [address], 01/21/2024 10:36:10 01/20/20 24 01/21/2024 COMP. METAB OLIC PANEL (14) alkaline phosphatase 59 IU/L 44-121 Not Available [facility] [address] [facility] [place], [address], 01/21/2024 10:36:10 01/20/20 24 01/21/2024 COMP. METAB OLIC PANEL (14) AST (SGOT) 19 IU/L 0-40 Not Available [facility]) [address] [place], [address], 01/21/2024 10:36:10 01/20/20 24 01/21/2024 COMP. METAB OLIC PANEL (14) ALT (SGPT) 32 IU/L 0-32 Not Available [facility]) [address] [place], [address], 01/21/2024 10:36:10 01/20/20 24 01/21/2024 LIPID PANEL cholesterol, total 185 mg/dL 100-19 9 Not Available [facility] ([facility]) [address] [place], [address], 01/21/2024 10:36:10 01/20/20 24 01/21/2024 LIPID PANEL triglyceride s 151 mg/dL 0-149 above high normal Not Available [facility]) [address] [place], [address], 01/21/2024 10:36:10 01/20/20 24 01/21/2024 LIPID PANEL HDL cholesterol 43 mg/dL >39 Not Available [facility] [address] [place], [address], 01/21/2024 10:36:10 01/20/20 24 01/21/2024 LIPID PANEL VLDL cholesterol donnell 27 mg/dL 5-40 Not Available [facility]) [address] [place], [address], 01/21/2024 10:36:10 01/20/20 24 01/21/2024 LIPID PANEL LDL chol calc ([facility]) 115 mg/dL 0-99 above high normal Not Available [facility] [address] [place], [address], 01/21/2024 10:36:10 01/20/20 24 01/21/2024 LIPID PANEL LDL calc comment: [employer] Not Available [facility]) [address] [facility], [place], [address], 01/21/2024 10:36:10 01/20/20 24 01/21/2024 VITAM IN B12 AND FOLAT E vitamin B12 >2000 pg/mL 232-12 45 above high normal Not Available [facility]) [address] [facility], [place], [address], 01/21/2024 10:36:10 01/20/20 24 01/21/2024 VITAM IN B12 AND FOLAT E folate (folic acid), serum 6.6 NG/mL >3.0 A serum folat e debbie ntrat ion of less than 3.1 ng/mL is consi dered to repre sent clini donnell defic iency . Not Available [facility] ([facility]) [address] [facility], [place], [address], 01/21/2024 10:36:10 01/20/20 24 01/21/2024 VITAM IN [...] um and D. Crystal helton DC: [facility] . 2. Isha price MF, Hermann mei [place], Patsy off-F sean i CHURCH, et al. Evalu ation , treat ment, and preve ntion of vitam in D defic iency : an Endoc rine Socie ty clini donnell pract ice guide line. JCEM. 2010; 96(7) :1911 -30. Not Available [facility] ([facility]) [address] [place], [address], 01/21/2024 10:36:11 01/20/20 24 01/21/2024 CREAT INE KINAS E,TOT AL creatine kinase,total 192 U/L 32-182 above high normal Not Available [facility] ([facility]) [address] [place], [address], 01/21/2024 10:36:11 01/20/20 24 01/21/2024 FSH AND LH LH 22.0 mIU/m L Adult Femal e Range Folli cular phase 2.4 - 12.6 Ovula tion phase 14.0 - 95.6 Lutea l phase 1.0 - 11.4 Postm enopa usal 7.7 - 58.5 Not Available [facility] ([facility]) [address] [place], [address], 01/24/2024 20:08:32 01/20/20 24 01/21/2024 FSH AND LH FSH 29.5 mIU/m L Adult Femal e Range Folli cular phase 3.5 - 12.5 Ovula tion phase 4.7 - 21.5 Lutea l phase 1.7 - 7.7 Postm enopa usal 25.8 - 134.8 Not Available [facility] ([facility]) [address] [place], [address], 01/24/2024 20:08:32 01/20/20 24 01/21/2024 TESTO STERO NE,FR EE AND TOTAL testosterone 11 NG/dL 4-50 Not Available [facility] [address] [facility], [place], [address], 01/24/2024 20:08:33 01/20/20 24 01/24/2024 TESTO STERO NE,FR EE AND TOTAL free testosterone (direct) 1.5 pg/mL 0.0-4. 2 Not Available [facility]) [address] [facility], [place], [address], 01/24/2024 20:08:33 01/20/20 24 01/21/2024 PROGE STERO NE progesterone 0.2 NG/mL Folli cular phase 0.1 - 0.9 Lutea l phase 1.8 - 23.9 Ovula tion phase 0.1 - 12.0 Pregn ant First trime ster 11.0 - 44.3 Secon d trime ster 25.4 - 83.3 Third trime ster 58.7 - 214.0 Postm enopa usal 0.0 - 0.1 Not Available [facility] ([facility]) [address] [facility], [place], [address], 01/24/2024 20:08:33 06/07/20 24 06/08/2024 VITAM IN [...] and D. Crystal helton DC: The [facility] Press . 2. Isha price MF, Hermann mei NC, Patsy off-F errar i CHURCH, et al. Evalu ation , treat ment, and preve ntion of vitam in D defic iency : an Endoc rine Socie ty clini donnell pract ice guide line. JCEM. 2010; 96(7) :1911 -30. Not Available [facility] ([facility]) [address], [place], [address], 06/08/2024 08:22:34 04/22/20 23 04/22/2023 MAMMO , scree rajiv, tomos ynthe sis, bilat eral No observ ation record ed. [email or web address] [facility] [address], [place], [address], 04/25/2023 10:47:45 05/31/20 24 05/31/2024 XR, thora cic spine , 4 or more view No observ ation record ed. [facility] [address] [place], [address], 06/07/2024 14:35:20 05/31/20 24 05/31/2024 DEXA No observ ation record ed. [facility] [address] [place], [address], 06/07/2024 14:35:21 06/28/20 24 06/28/2024 MRI, thora cic spine , w/o contr ast No observ ation record ed. [email or web address] [facility] [address], [place], [address], 07/13/2024 09:23:43 Result Notes None recorded. Problems Name Problem SNOMED Code Status Onset Date Resolution Date Notes Provider Name and Address Organization Details Recorded Time Pain in limb 44762362 Active Not Available [facility] 3 01:47:49 Diverticul itis 251799379 Active 2018 Not Available [facility] 3 01:47:48 Hyperlipid emia 63953336 Active 2022 Not Available [facility] 3 01:47:49 Vitamin D deficiency 11888976 Active 2022 Not Available [facility] 3 01:47:49 Bronchitis 55474201 Active 2023 JUAN Garcia [address], [place], [address] , [facility] 4 16:21:18 Acute bronchitis 52473468 Active 2023 Eula Thomas RN null, [place] [facility] 4 14:28:17 Serum vitamin B12 below reference range 017046645 Active 2023 JUAN Garcia [address], [address], [place], [address] , [facility] 4 09:49:54 Screening for malignant neoplasm of colon Active 2023 JUAN Garcia [address], [place], [address] , [facility] 4 09:51:00 Hot sweats 510177376 Active 2023 Eula Thomas RN null, [place] - [facility] 4 10:09:41 Sinusitis [id number] Active 2023 JUAN Garcia [address], [address], [place], [address] , [facility] 4 09:45:22 Muscle spasm of thoracic back [id number] Active 2023 JUAN Garcia [address], [address], [place], [address] , [facility] 4 09:47:51 Administra tion of influenza vaccine Active 2023 JUAN Garcia [address], [address], [place], [address] , [facility] 4 09:50:24 Administra tion of measles and mumps and rubella vaccine Active 2023 JUAN Garcia [address], [address], [place], [address] , [facility] 4 09:50:51 Administra tion of tetanus vaccine Active 2023 JUAN Garcia [address], [address], [place], [address] , [facility] 4 09:51:11 Acute thoracic back pain 865551309 Active 2023 Eula Thomas RN null, [facility] 4 15:18:55 Pleurisy 142706419 Active 2023 JUAN Garcia [address], [place], [address] , [facility] 4 14:43:36 Nausea 444679832 Active 2024 Eula Thomas RN null, [facility] 5 15:28:09 Strain of muscle of left shoulder 8619565359311 9105 Active 2024 JUAN Garcia [address], [place], [address] , [facility] 5 13:33:53 Problem Notes None recorded. Procedures Surgical History Date Name Laterality Status Provider Name and Address Organization Details Recorded Time Colon Resection completed Not Available [facility] 09/15/2022 20:38:19 Appendectomy completed Not Available [facility] 09/15/2022 20:38:19 delivery completed Not Available [facility] 09/15/2022 20:38:19 delivery completed Not Available [facility] 09/15/2022 20:38:19 Ablation completed Not Available [facility] 20:38:19 Imaging Results None recorded. Procedure [...] cm 98 % 114 /min 96.3 [degF] 56363.0 3 g 140/90 mm[Hg] Not Available [facility] 3 20:38:33 Date Recorded Body height Body mass index (BMI) Body weight Body temperature Heart rate Oxygen saturation Systolic And Diastolic Provider Name and Address Organization Details Last Updated DateTime 3 157.48 cm 37.7 kg/m2 82318.0 3 g 97.2 [degF] 100 /min 98 % 122/80 mm[Hg] PORTIA Wyatt [facility] [employer] 3 14:31:09 Date Recorded Body height Body mass index (BMI) Body weight Body temperature Heart rate Oxygen saturation Respiratory rate Systolic And Diastolic Provider Name and Address Organization Details Last Updated DateTime 4 157.48 cm 37.1 kg/m2 41141.2 5 g 96.7 [degF] 87 /min 98 % 16 /min 108/82 mm[Hg] Araceli Singleton RN [facility] [employer] 4 09:39:43 Date Recorded Body height Body mass index (BMI) Body weight Body temperature Heart rate Respiratory rate Oxygen saturation Systolic And Diastolic Provider Name and Address Organization Details Last Updated DateTime 4 157.48 cm 37.7 kg/m2 46782.0 3 g 97.4 [degF] 88 /min 16 /min 98 % 120/80 mm[Hg] Araceli Singleton RN [facility] 4 09:33:46 Date Recorded Body height Body mass index (BMI) Body weight Body temperature Heart rate Oxygen saturation Systolic And Diastolic Provider Name and Address Organization Details Last Updated DateTime 4 157.48 cm 35.8 kg/m2 19357.1 g 97.8 [degF] 96 /min 98 % 118/80 mm[Hg] Araceli Singleton RN [facility] 4 14:24:02 Social History Question Answer Notes LastModified by [employer] Details LastModified Time Tobacco Smoking Status Former Smoker Lilian Marlyn oquendo [facility] 01/03/2023 14:27:05 What Is Your Level Of Caffeine Consumption? Moderate [id number] Information not available 09/15/2022 What Type Of Diet Are You Following? REGULAR [id number] Information not available 09/15/2022 When Did You Quit Smoking? 16+yearssince lastcigarette Information not available 01/03/2023 What Is Your Relationship Status? Single [id number] Information not available 09/15/2022 Do You Have Any Dietary Restrictions? No [email or web address] Information not available 01/03/2023 Sex: Female Functional Status Question Answer Note LastModified by [employer] Details LastModified Time What is your level of alcohol consumption? 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 Occasional [id number] Information not available 09/15/2022 Mental Status None recorded. Family History Nothing Reported. Medical History Condition Response HEADACHES/MIGRAINES Y GI PROBLEMS Low Testosterone Y ANEMIA/BLOOD DISORDER Y EXCESSIVE PERSPIRATION Y LIVER DISEASE DEPRESSION (INCLUDING POST ) HYPERTENSION Gynecological HistoryNo gynecological history recorded. Obstetrics History GPAL:G 0 P 0 0 0 0 Immunizations Vaccine Type Date Status Note Provider Nam e and Address Organization Details Recorded Time Influenza, split virus, quadrivalent, preservative 1 completed Not Available [facility] 07[facility] 01:47:49 COVID-19, mRNA, LNP-S, PF, dean-sucrose, 30 mcg/0.3 mL 4 completed Araceli Singleton RN null, [employer] 04/17/2024 16:47:18 Tdap 4 completed JUAN Garcia [address], [place], [address], [employer] 04/28/2024 16:09:16 MMR 4 completed JUAN Garcia [address], [address], [place], [address], [employer] 04/28/2024 16:09:16 Influenza, split virus, trivalent, PF 4 completed JUAN Garcia [address], [place], [address], [employer] 04/28/2024 16:09:16 Past Encounters Encounter ID Performer Location Encounter Start Date Encounter Closed Date Diagnosis/Indication Diagnosis SNOMED-CT Code Diagnosis ICD10 Code Diagnosis IMO Codes Diagnosis Note [id number] Belle Ramos MD [facility] [address] [place] [address] 09/23/2020 00:00:00 09/24/2020 05:39:56 [id number] Belle Ramos MD [facility] [address] [place] [address] 12/08/2020 00:00:00 12/08/2020 20:51:35 [id number] Belle Ramos MD [facility] [address] [place] [address] 10/06/2021 00:00:00 10/06/2021 20:47:05 [id number] Belle Ramos MD [facility] [address] [place] [address] 12/30/2021 00:00:00 12/30/2021 18:46:32 [id number] Gisell Díaz MD [facility] [address] [place] [address] 05/11/2022 00:00:00 05/11/2022 12:09:01 [id number] Belle Ramos MD [facility] [address] [place] [address] 08/27/2022 00:00:00 08/28/2022 10:15:58 [id number] Belle Ramos MD [facility] [address] [place] [address] 01/03/2023 14:25:10 01/03/2023 15:10:14 Adult health examination 808638489 Z00.00 Hyperlipidemia 33758493 E78.5 Screening for malignant neoplasm of colon 319742675 Z12.11 pt to check with insurance to see what they will cover. [id number] Rakesh Gutierrez MD [facility] [address] [place] [address] 01/09/2024 09:23:05 01/09/2024 09:54:30 Vitamin D deficiency 65761518 E55.9 Serum nichelle min B12 below reference range 532057062 R79.89 Hyperlipidemia 05807335 E78.5 Screening for malignant neoplasm of colon 348089912 Z12.11 [id number] Rakesh Gutierrez MD [facility] [address] [place] [address] 04/13/2024 09:23:35 04/13/2024 10:09:35 Muscle spasm of thoracic back 4431448652 19050 M62.830 Administra tion of influenza vaccine 30472993 Z23 Administra tion of measles and mumps and rubella vaccine 52404781 Z23 Administra tion of tetanus vaccine 874599117 Z23 [id number] Rakesh Gutierrez MD [facility] [address] [facility] [place] [address] 06/07/2024 14:02:18 06/07/2024 14:43:57 Muscle spasm of thoracic back 0065770406 02469 M62.830 Pleurisy 872762650 R09.1 Health Concerns Section Related Observation LastModified by Organization Detai ls LastModified Time None Recorded Concern Status LastModified by Organization Details LastModified Time None Recorded Advance Directives Directive None Recorded Payers Insurance Date Sequence Insurance Name Policy Number Policy Finney Covered Member ID Finney Member ID Guarantor Name 09/11/2024 1 [employer] - OPEN ACCESS [id number] Zoë Penn [id number] OI Zoë Penn Notes Date Note Type [...] what they cover. Belle Ramos MD [address], [place], [address], [employer] 01/03/2023 21:27:44 01/09/2024 text/html ROS as noted in the HPI numbness tingling feet , ankles JUAN Garcia [address], [place], [address], [employer] 01/15/2024 16:10:40 04/13/2024 text/html ROS as noted in the HPI muscle tight mid back , no strain , that she can recall JUAN Garcia [address], [place], [address], [employer] 04/28/2024 16:11:14 06/07/2024 text/html ROS as noted in the HPI thoracic back pain still there , yesterday and today aggravated by taking a deep breath . JUAN Garcia [address] [address], [place], [address], [facility] 06/07/2024 14:50:44 OBGyn Episode No OBEpisode recorded.
--- OUTSIDE RECORDS SUMMARY | 2025-07-01 00:33 | XMS_ITS | Clinical Summary ---
Author Organization [facility] Address [address] [address] Care Team Providers Care Commercial Construction Superintendent Name Role Phone Peyman BowieElizabetCherry henning Primary Care Provider [phone] Source Comments [facility],non-owned Affiliates and Associated Physician Practices is amultiple site organization consisting of ambulatory clinics and hospital sitesin [place], [place], [place] and [place]. This disclosure is being madepursuant to the Care Everywhere program and may not contain all information available regarding this patient. Last updated 18.[facility] Allergies No known active allergies Medications * [...] on file Legal Sex Female 6:30 AM SOLE LAYER HAND Gender Identity Not on file Sexual Orientation Not on file Last Filed Vital Signs Vital Sign Reading Time Taken Comments Blood Pressure 136/90 08/28/2019 2:04 PM SOLE LAYER HAND Pulse 102 08/28/2019 2:04 PM SOLE LAYER HAND Temperature 36.7 C (98.1 F) 08/28/2019 2:04 PM SOLE LAYER HAND Respiratory Rate 20 08/28/2019 2:04 PM SOLE LAYER HAND Oxygen Saturation 97% 08/28/2019 2:04 PM SOLE LAYER HAND Inhaled Oxygen Concentration - - Weight 96.3 kg (212 lb 6.4 oz) 08/28/2019 2:04 P M SOLE LAYER HAND Height 154.9 cm (5' 1) 08/28/2019 2:04 PM SOLE LAYER HAND Body Mass Index 40.13 08/28/2019 2:04 PM SOLE LAYER HAND Plan of Treatment Health Maintenance Due Date [...] COMPREHENSIVE METABOLIC PANEL Routine 07/03/2019 4:06 PM SOLE LAYER HAND NAFLD (nonalcoholic fatty liver disease) from Last 3 Months or Most Recently Relevant to Health Maintenance Results * COMPREHENSIVE METABOLIC PANEL (07/03/2019 4:06 PM [facility]) BUN 9 7 - 26 mg/dL 07/03/2019 5:03 PM [facility] Creatinine 0.7 0.6 - 1.2 mg/dL 07/03/2019 5:03 PM [facility] Sodium 139 136 - 145 mmol/L 07/03/2019 5:03 PM [facility] Potassium 4.1 3.5 - 4.5 mmol/L 07/03/2019 5:03 PM [facility] Chloride 104 98 - 107 mmol/L 07/03/2019 5:03 PM [facility] CO2 24 22 - 29 mmol/L 07/03/2019 5:03 PM [facility] Glucose 86 70 - 115 mg/dL 07/03/2019 5:03 PM [facility] Calcium 9.5 8.4 - 10.2 mg/dL 07/03/2019 5:03 PM [facility] Protein Total 7.0 6.0 - 8.3 g/dL 07/03/2019 5:03 PM [facility] Albumin 4.0 3.4 - 5.0 g/dL 07/03/2019 5:03 PM [facility] Bilirubin Total 0.4 0.2 - 1.2 mg/dL 07/03/2019 5:03 PM [facility] Alkaline Phosphatase 58 40 - 150 Units/L 07/03/2019 5:03 PM [facility] ALT 19 0 - 55 Units/L 07/03/2019 5:03 PM [facility] AST 19 5 - 34 Units/L 07/03/2019 5:03 PM [facility] Anion Gap 15 8 - 18 07/03/2019 5:03 PM [facility] BUN/Creatinine Ratio 13 7 - 23 07/03/2019 5:03 PM [facility] Osmolality Calculated 286 270 - 300 mOsm/kg 07/03/2019 5:03 PM [facility] Albumin/Globulin Ratio 1.3 1.1 - 2.3 07/03/2019 5:03 PM [facility] eGFR >60 >60 mL/min/1.7 3 m2 07/03/2019 5:03 PM [facility] Blood BLOOD SPECIMEN / Unknown Lab Venipuncture / Unknown 07/03/2019 4:06 PM SOLE LAYER HAND 07/03/2019 4:19 PM [facility] Dannie Roseann Pinto MD LAB - CHEMISTRY ORDERA BLES Final Result [facility] [address] [phone] from Last 3 Months or Most Recently Relevant to Health Maintenance Insurance Umeng Umeng Care Teams Commercial Construction Superintendent Relationship Specialty Start Date End Date Cherry Fernandez DO [address] [place] [address] PCP - General 07/16/19
--- OUTSIDE RECORDS SUMMARY | 2025-07-01 00:33 | XMS_ITS | Encounter Summary ---
Author Organization [facility] Address [address] [place] [address] [place] [address] Care Team Providers Care Social Media Editor Name Role Phone Belle Ramos MD Primary Care Provider [phone] Cherry Fernandez DO Primary Care Provider [phone] Reason for Visit * Reason Onset Date Comments Appointment 06/08/2019 Encounter Details Date Type Department Care Team (Late st Contact Info) Description 06/08/2019 Telephone [facility] [address] [place] [address] Kaitlyn Mcnair Appointment Social History Tobacco Use Types Packs/Day Years Used Date Smoking Tobacco: Never Assessed Comments Unknown Sex and Gender Information Value Date Recorded Sex Assigned at Not on file Legal Sex Female 6:30 AM SUPERVISOR FRONT Gender Identity Not on file Sexual Orientation Not on file documented as of this encounter Miscellaneous Notes * Telephone Encounter - Kaitlyn Mcnair - 06/08/2019 3:01 PM CST 2nd attempt to contact this patient to reschedule appointment with Dr. Pinto. No answer vm was left. RVISOR FRONT documented in this encounter Plan of Treatment Not on file documented as of this encounter Visit Diagnoses Not on filedocumented in this encounter Care Teams Social Media Editor Relationship Specialty Start Date End Date Belle Ramos MD [address] [place] [address] [address] [place] [id number] PCP - General Family Medicine 07/03/19 07/15/19 Cherry Fernandez DO [address] [place] [address] PCP - General 07/16/19 documented as of this encounter
--- OUTSIDE RECORDS SUMMARY | 2025-07-01 00:33 | XMS_ITS | Clinical Summary ---
Author Organization [facility] Address [address] [place] [address] Care Team Providers Care Entry Level Automotive Technician Name Role Phone Binh Goel MD Unavailable [phone] Avni Guzmán MD Unavailable [phone] Carmen Baca MD Unavailable [phone] Gladis Oneill MD Primary Care Provider [phone] Allergies No known active allergies Medications ergocalciferol [...] 05/19/2023 Assessment & Plan (06/25/2025 12:57 PM HOME THEATER INSTALLER): History of vitamin-D deficiency take supplements. Repeat level pending Orders: Vitamin D 25 hydroxy; Future Hyperlipidemia 01/03/2023 Status post gastrointestinal surgery, follow-up exam 01/15/2021 Diverticulitis 11/07/2020 Overview (11/07/2020): Added automatically from request for surgery [id number] Abnormal result of other cardiovascular function study 09/05/2019 Chest pain 09/05/2019 Iron deficiency 09/05/2019 Obesity 09/05/2019 Assessment & Plan (06/25/2025 12:57 PM HOME THEATER INSTALLER): Chronic, not at goal Healthy, low carbohydrate lifestyle and exercise for 150min/week recommended Orders: Lipid panel; Future Comprehensive metabolic panel; Future CBC with auto differential; Future Hemoglobin A1c; Future Essential hypertension 07/03/2019 Assessment & Plan (06/25/2025 12:57 PM HOME THEATER INSTALLER): Chronic, controlled. BP 126/68, stable. Continue losartan [...] Department Care Team Description 06/18/2025 2:30 PM HOME THEATER INSTALLER Office Visit [facility] at [address] [address] Gladis Oneill MD Essential hypertension (Primary Dx); Right leg numbness; Vitamin B12 deficiency; Vitamin D deficiency; Class 2 obesity due to excess calories without serious comorbidity with body mass index (BMI) of 39.0 to 39.9 in adult 04/04/2025 Results Follow-Up [facility] at [address] [address] Carmen Saavedra NP Aerobic and anaerobic culture and gram stain Wound Leg, left from Last 3 Months Immunizations Immunization Administration Dates Next Due COVID-19 mRNA (Neck Tie Koozies) 0.3 m L (30 mcg) vaccine (12 [...] 12/17/2020 How often do you attend chur ch or cheondoism services? Never 12/17/2020 Do you belong to any clubs o r organizations such as christian groups, unions, fraternal or athletic groups, or [...] Comments Blood Pressure 126/68 06/18/2025 2:35 PM HOME THEATER INSTALLER Pulse 100 06/18/2025 2:35 PM HOME THEATER INSTALLER Temperature 36.4 C (97.5 F) 06/18/2025 2:35 PM HOME THEATER INSTALLER Respiratory Rate 18 06/18/2025 2:35 PM HOME THEATER INSTALLER Oxygen Saturation 99% 06/18/2025 2:35 PM HOME THEATER INSTALLER Inhaled Oxygen Concentration - - Weight 98.8 kg (217 lb 12.8 oz) 06/18/2025 2:35 PM HOME THEATER INSTALLER Height 157.5 cm (5' 2.01) 06/18/2025 2:35 PM CS T Body Mass Index 39.82 06/18/2025 2:35 PM HOME THEATER INSTALLER Plan of Treatment Health Maintenance Due Date [...] Completed 04/26/2025, , 04/20/2021, Additional history exists Insurance [id number] [id number] Advance Directives For more information, please contact: [phone] * Full Code (Latest Code Status on File) Date Activated Date Inactivated Comments 12/17/2020 3:22 PM 12/19/2020 7:46 PM Care Teams Entry Level Automotive Technician Relationship Specialty Start Date End Date Gladis Oneill MD [address] [address] PCP - General Family Medicine 06/18/25 Binh Goel MD Referring Physician Gastroenterology 10/31/20 Avni Guzmán MD [address] [facility] [phone] [place] [address] Surgeon Colon and Rectal Surgery 01/20/21 Carmen Baca MD [address] [place] [address] System Administration Advisor Gynecology 01/20/21
[2025-07-01 07:04] VITALS: BP 151/90; PULSE 84; TEMP 36.3; O2SAT 99; BMI 41.1
[2025-07-01] MEDS: LACTATED RINGERS 1,000 ML 30 ML IV CONT (07:07)
[2025-07-01] MEDS: ACETAMINOPHEN 500 MG TABLET 1000 MG PO (07:07)
--- NOTE | 2025-07-01 07:16 | P.PNAN_ITS ---
Anes - Initial Pre Proc Eval Procedure: Operation Date: 07/01/25 08:15 Proposed Procedures p Hysteroscopy Dilation and Curettage - Carmen Baca MD Date/Time: 07/01/25 07:16 Surgeon: Carmen Baca MD Pre Op Diagnosis: post menopausal bleeding Patient Data Age: 54 Gender: F Height: 1.55 m Weight: 98.7 kg Last Vital Signs Temp 36.3 C L 07/01/25 07:04 Pulse 84 07/01/25 07:04 BP 151/90 H 07/01/25 07:04 Pulse Ox 99 07/01/25 07:04 O2 Del Method Room Air 07/01/25 07:04 Allergies Allergy/AdvReac Type Severity Reaction Status Date / Time No Known Allergies Allergy Verified 07/01/25 07:03 Home Medications ?Medication ?Instructions ?Recorded ?Confirmed ?Type cyanocobalamin (vitamin B-12) 1,000 mcg PO DAILY 07/2806/26/25 History 1,000 mcg tablet (Vitamin B-12) ergocalciferol (vitamin D2) 1,250 50,000 unit PO WEEKL Y 07/28/19 06/26/25 History mcg (50,000 unit) capsule lisinopril 20 1 tablet PO BID 07/28/1905/11 History mg-hydrochlorothiazide 12.5 mg tablet magnesium oxide 400 mg (241.3 mg 400 mg PO DAILY 07/2806/26/25 History magnesium) tablet Patient hx anesthesia problems: none Family hx anesthesia problems: none Results Review: All pre-operative results and documents have been reviewed as part of the pre- operative evaluation. [facility] Past Medical History Medical History Anemia Ankle fracture, left Deficient knowledge of caesarean delivery Fibroids Diverticulitis Sleep apnea Hypertension (Unknown) Surgical History Surgical History S/P laparoscopic appendectomy 07/28/2019 Family History Family History Other Cerebrovascular accident Diabetes mellitus Family history of cardiovascular disease Family history of malignant neoplasm Hypertension Social History Social History Smoking status: Never smoker Second hand tobacco smoke exposure: No Alcohol intake: never Substance use: never Living arrangements: alone Gender identity (if verbalized by the patient): Female Spiritual care concerns: No Agree to blood products: Yes Anes - Eval Final PreProcedure Day of Procedure 07/01/25 07:16 Patient weight: morbidly obese Heart: regular rate and rhythm Lungs: clear to auscultation Airway: Mallampati scale class II Neurological: alert and oriented Last oral intake: >/= 8 hours ASA classification: III Emergent: no Anesthetic plan: proceed Anesthesia type and monitoring: general GIVS and standard monitoring Results Review: All pre-operative results and documents have been reviewed as part of the pre- operative evaluation. Informed Consent: The patient's anesthetic plan and its attendant risks and benefits were discussed with the patient/family/POA. Questions were solicited and answers provided to the satisfaction of the patient/family/POA.
--- NOTE | 2025-07-01 07:25 | WPDHPUPDATE1 ---
History and Physical Update Update Date/Time: 07/01/25 07:25 History and Physical has been reviewed, including an updated exam of the patient. There are NO changes in the patient's condition. Risks, benefits, and alternatives have been discussed and questions answered. Patient agrees to proceed with procedure.
--- NOTE | 2025-07-01 07:25 | PM.HPGS ---
History of Present Illness History of Present Illness Consent: Risks, benefits, and alternatives have been discussed and questions answered. Patient agrees to proceed with procedure. Chief complaint: post menopausal bleeding Narrative: Zoë Penn is a 54 year old female with random spotting episodes of postmenopausal bleeding. Pelvic ultrasound is borderline at 4 mm. It was recommended to undergo D&C hysteroscopy to further evaluate. Risks of infection, bleeding, perforation, and possible pathology are reviewed. Patient voices understanding and agrees to proceed. Review of Systems Review of Systems: not repeated day of surgery; patient states no changes in status [facility] Past Medical History Medical History (Updated 07/01/25 @ 07:31 by Carmen Baca MD) Ankle fracture, left Fibroids Diverticulitis Sleep apnea Hypertension (Unknown) Surgical History Surgical History (Updated 07/01/25 @ 07:30 by Carmen Baca MD) History of partial colectomy 2020 secondary to diverticulitis History of endometrial ablation History of hysteroscopy 2015 History of X2 S/P laparoscopic appendectomy 07/28/2019 Family History Family History Other Cerebrovascular accident Diabetes mellitus Family history of cardiovascular disease Family history of malignant neoplasm Hypertension Social History Social History Smoking status: Never smoker Second hand tobacco smoke exposure: No Alcohol intake: never Substance use: never Living arrangements: alone Gender identity (if verbalized by the patient): Female Spiritual care concerns: No Agree to blood products: Yes Meds Home Medications and Allergies Home Medications ?Medication ?Instructions ?Recorded ?Confirmed ?Type cyanocobalamin (vitamin B-12) 1,000 mcg PO DAILY 07/28/19 06/26/25 History 1,000 mcg tablet (Vitamin B-12) ergocalciferol (vitamin D2) 1,250 50,000 unit PO WEEKLY 07/28/19 06/26/25 History mcg (50,000 unit) capsule lisinopril 20 1 tablet PO BID 07/28/19 06/26/25 History mg-hydrochlorothiazide 12.5 mg tablet magnesium oxide 400 mg (241.3 mg 400 mg PO DAILY 07/28/19 06/26/25 History magnesium) tablet Allergies Allergy/AdvReac Type Severity Reaction Status Date / Time No Known Allergies Allergy Verified 07/01/25 07:03 Vital Signs Vital Signs - 24 hr 07/01/25 07:04 Temperature 97.3 F L Pulse Rate 84 Blood Pressure 151/90 H Pulse Oximetry 99 Oxygen Delivery Room Air Exam Const: General: healthy appearing, alert and obese (BMI 39.8) Orientation/consciousness: patient oriented x3 Resp: Effort & Inspection: normal respiratory effort GI: GI Palp: Yes Soft to palpation, No Tenderness to palpation present (GI) and No Palpable mass present : External Female Exam: normal external appearance Speculum Exam - Vagina: normal appearance of the vagina and normal vaginal discharge Speculum Exam - Cervix: normal appearance of the cervix Bimanual exam- vagina & uterus: uterine size normal and consistency normal Bimanual Exam- Adnexa, other: normal adnexae and No adnexal tenderness Neuro: General: patient oriented x3 Assessment and Plan Assessment and plan (1) Post-menopausal bleeding: Code(s): N95.0 - Postmenopausal bleeding Status: Acute Assessment and Plan: Plan to proceed with D&C hysteroscopy
[2025-07-01 08:01] LABS: BEDSIDEPREGUCG Negative (Negative)
--- NOTE | 2025-07-01 08:18 | S_PTH ---
PATIENT: Zoë Penn LOC: [facility] U#:[id number] AGE/SX: 54/F ROOM: RE07/01/[address]: Carmen Baca MD : 1970 BED: DIS: 07/01/2025 SPEC #: [id number] RECD: 07/01/25 10:16 STATUS: JOSE JUAN REFrankie #: [id number] HERNAN: 07/01/25 08:[address]: Carmen Baca DEPT: [facility] Surgical RECD BY: Nidia Cyr Tissues: A - Endometrial Curettings Procedures: Hematoxylin and Eosin Stain Gross and Microscopic Level 4
[2025-07-01 08:32] VITALS: BP 132/78; PULSE 84; RESP 16; O2SAT 96
--- NOTE | 2025-07-01 08:34 | W.PM.PROC2 ---
Procedure Note - Detailed Date of Procedure 07/01/25 Pre-op Diagnosis post menopausal bleeding Post-op Diagnosis Same Procedure Performed D&C hysteroscopy with resection of fibroid Surgeon Carmen Baca MD Anesthesia MAC Findings External and internal cervix are stenotic. The uterus sounds to 8cm. There was an irregular mass at the anterior fundus. Upon starting the resection the internal portion of the mass appears to be a fibroid. Description of Procedure The patient was taken to the operating room and placed under anesthesia in the dorsal lithotomy position. She was prepped and draped in the usual sterile fashion. [place] speculum was placed in the vagina and the cervix grasped on the anterior lip with tenaculum. The external os is very stenotic and requires small Hegar dilator to enter. The os Finders then used and with some difficulty the internal os is able to be transgressed. The uterus is then sounded to 8cm. The diagnostic hysteroscope was placed and with the above-stated findings the small Aveta resection device is opened and placed. Under direct visualization the anterior fundal mass is removed in its entirety. Although the surface is irregular, the consistency of the internal portion of the mass is consistent with a fibroid. The hysteroscope and resection device were then removed. The endometrium was curetted with a sharp curette until a good uterine cry was noted in all areas. Instruments are removed. Sponge, needle, and instrument counts are correct per the OR staff. The patient was taken to recovery in stable condition. Estimated Blood Loss 5 Drains No Packing No Pathology Yes (Endometrial curettings and shavings) Complications No immediate complications Condition Stable Disposition PACU
[2025-07-01 09:00] VITALS: BP 131/80; PULSE 73; O2SAT 97
[2025-07-01 09:30] VITALS: BP 136/83; PULSE 76
== END 2025-07-01 09:51 | disposition home or self-care (01) ==
PROVIDERS: Visit Provider Obstetrics & Gynecology Gynecology
PROC: 0U5B8ZZ Destruction of Endometrium, Via Natural or Artificial Opening Endoscopic (ICD-10-PCS; CPT 58563; principal; 2025-07-01 08:15)
DX: N88.2 Stricture and stenosis of cervix uteri (principal); D25.9 Leiomyoma of uterus, unspecified; I10 Essential (primary) hypertension; D64.9 Anemia, unspecified; G47.30 Sleep apnea, unspecified; E66.01 Morbid (severe) obesity due to excess calories; Z68.41 Body mass index [BMI] 40.0-44.9, adult; Z98.890 Other specified postprocedural states; Z90.49 Acquired absence of other specified parts of digestive tract; Z98.891 History of uterine scar from previous surgery; Z87.19 Personal history of other diseases of the digestive system; Z80.9 Family history of malignant neoplasm, unspecified; Z82.49 Family history of ischemic heart disease and other diseases of the circulatory system
CPT/HCPCS: 58558; 88305; A9270; J2704; J3010; J7120